=== PATIENT | female | born 1940 | race Caucasian/White ===

== ENCOUNTER 2018-07-27 08:54 | Day surgery (SDC) | payer MEDICARE, MEDICAID ==
[~2018-07-27] VITALS: Ht 154.9 cm; Wt 100.0 kg
[~2018-07-27 08:54] MED LIST: CILO100T PO; DICL100G15 TOP; DOCU-273 PO; FERR325T28 PO; HYDR-3972 PO; KETO15CR2 TP; LIDO700A5 TOP; LIOT5TAB7 PO; LISI10TA4 PO; LORA10TA7 PO; LOVA20TA2 PO; METF-950 PO; METO25TA6 PO; MOME17SP NS; MONT10TA24 PO; MULT-1085 PO; NYSPWD TP; OCUVITE PO; OMEP-50 PO; ONDA4TAB11 PO; SERT100T10 PO
[2018-07-27 09:11] VITALS: BP 127/79
[2018-07-27] MEDS ORDERED: fentaNYL/PF 50MCG/1 ML 2ML syringe ONE (09:21)
[2018-07-27] MEDS ORDERED: LIDOcaine Viscous 15ml cup ONE (09:21)
[2018-07-27] MEDS ORDERED: MIDAZolam 5mg/5ml vial ONE (09:21)
[2018-07-27] MEDS ORDERED: SENN-161 PO (09:24)
[2018-07-27] MEDS ORDERED: MONT10TA21 PO (09:43)
[2018-07-27] MEDS ORDERED: FAMO-128 PO (09:44)
[2018-07-27] MEDS ORDERED: LIOT5TAB7 PO (09:45)
[2018-07-27] MEDS ORDERED: FLUT16SP2 BOTHNARES (09:47)
[2018-07-27] MEDS ORDERED: CHOL10002 PO (09:50)
[2018-07-27] MEDS ORDERED: GABA300C PO (09:51)
[2018-07-27] MEDS ORDERED: POTA8TAB8 PO (09:52)
[2018-07-27] MEDS ORDERED: BACL20TA PO (09:53)
[2018-07-27] MEDS ORDERED: VIT1CAPS46 PO (09:54)
[2018-07-27] MEDS ORDERED: CYAN-19 PO (09:55)
[2018-07-27] MEDS ORDERED: FURO40TA4 PO (09:55)
[2018-07-27 10:50] VITALS: BP 127/74
[2018-07-27 11:00] VITALS: BP 106/75
[2018-07-27 11:10] VITALS: BP 122/84
[2018-07-27 11:20] VITALS: BP 108/70
== END 2018-07-27 11:44 | disposition home or self-care (01) ==
LOC: GI LAB 08:54
PROVIDERS: ATTEND Internal Medicine Gastroenterology
DX: K29.50 Unspecified chronic gastritis without bleeding (principal); K44.9 Diaphragmatic hernia without obstruction or gangrene; K22.2 Esophageal obstruction; I10 Essential (primary) hypertension; K21.9 Gastro-esophageal reflux disease without esophagitis; G80.8 Other cerebral palsy; E11.9 Type 2 diabetes mellitus without complications; Z79.82 Long term (current) use of aspirin; Z79.1 Long term (current) use of non-steroidal anti-inflammatories (NSAID); Z79.891 Long term (current) use of opiate analgesic; Z79.84 Long term (current) use of oral hypoglycemic drugs; Z86.69 Personal history of other diseases of the nervous system and sense organs; Z90.49 Acquired absence of other specified parts of digestive tract; Z98.890 Other specified postprocedural states; Z79.899 Other long term (current) drug therapy; Z82.49 Family history of ischemic heart disease and other diseases of the circulatory system; Z83.6 Family history of other diseases of the respiratory system
CPT/HCPCS: 43239; 43450; J2250; J3010; J7030; 99152; A4620

== ENCOUNTER 2019-01-19 13:02 | Emergency (ER) | payer MEDICARE, MEDICAID ==
[~2019-01-19] VITALS: Ht 152.4 cm; Wt 114.0 kg
[~2019-01-19 13:02] MED LIST changes: +ASPI-611 PO; +BACL20TA PO; +CHOL10002 PO; +CYAN-19 PO; -DOCU-273 PO; +DOCU-28 PO; +FAMO-128 PO; +FLUT16SP2 BOTHNARES; +FURO40TA4 PO; +GABA300C PO; -KETO15CR2 TP; -LIDO700A5 TOP; +LORA1TAB PO; +MONT10TA21 PO; -MONT10TA24 PO; -NYSPWD TP; -OMEP-50 PO; -ONDA4TAB11 PO; +POTA8TAB8 PO; +SENN-162 PO; +VIT1CAPS46 PO
[2019-01-19 14:33] LABS: BASOPHILS % (AUTO) 0.6 % (0-1); EOSINOPHILS # (AUTO) 0.5 X10'3 (0-0.9); EOSINOPHILS % (AUTO) 7.8 % (0-6); HEMATOCRIT 34.5 % (35.0-45.0); HEMOGLOBIN 11.2 g/dl (12.0-16.0); LYMPHOCYTES # (AUTO) 1.1 X10'3 (1.1-4.8); LYMPHOCYTES % (AUTO) 16.6 % (21-51); MEAN CORPUSCULAR HEMOGLOBIN 30.6 PG (27.0-31.0); MEAN CORPUSCULAR HGB CONC 32.4 g/dL (33.0-36.5); MEAN CORPUSCULAR VOLUME 94.4 FL (78-98); MEAN PLATELET VOLUME 7.9 FL (7.4-10.4); MONOCYTES # (AUTO) 0.5 X10'3 (0-0.9); MONOCYTES % (AUTO) 7.9 % (2-12); NEUTROPHILS # (AUTO) 4.6 X10'3 (1.8-7.7); NEUTROPHILS % (AUTO) 67.1 % (42-75); PLATELET COUNT 315 X10'3 (140-440); RED BLOOD COUNT 3.65 X10'6 (4.20-5.60); WHITE BLOOD COUNT 6.8 X10'3 (4.5-11.0)
[2019-01-19 14:49] LABS: INR 0.9 INR; PARTIAL THROMBOPLASTIN TIME 36 SECONDS (22-32)
[2019-01-19 14:50] LABS: ALANINE AMINOTRANSFERASE 16 U/L (12-78); ALBUMIN/GLOBULIN RATIO 0.8 (1.1-1.5); ALKALINE PHOSPHATASE 76 IU/L (46-116); ANION GAP 8 (8-16); ASPARTATE AMINO TRANSFERASE 16 U/L (10-37); BILIRUBIN,TOTAL 0.3 MG/DL (0.1-1.0); BLOOD UREA NITROGEN 27 MG/DL (7-18); BUN/CREATININE RATIO 17.5 (6.6-38.0); CALCIUM 9.2 MG/DL (8.5-10.1); CHLORIDE 100 MMOL/L (99-107); CREATININE 1.54 MG/DL (0.40-0.90); GLUCOSE 109 MG/DL (70-104); POTASSIUM 4.8 MMOL/L (3.5-5.1); SODIUM 135 MMOL/L (135-145); TOTAL CARBON DIOXIDE 27.5 MMOL/L (24-32); eGFR 33 ML/MIN
[2019-01-19 16:04] VITALS: BP 129/91
[2019-01-19] MEDS ORDERED: cephalexin 500mg capsule PO ONE (16:25)
[2019-01-19] MEDS ORDERED: clindamycin 150mg capsule PO ONE (16:25)
[2019-01-19] MEDS ORDERED: CEPH-572 PO (16:33)
== END 2019-01-19 17:28 | disposition home or self-care (01) ==
LOC: ER 13:03
DX: S80.12XA Contusion of left lower leg, initial encounter (principal); L03.116 Cellulitis of left lower limb; J44.9 Chronic obstructive pulmonary disease, unspecified; E11.9 Type 2 diabetes mellitus without complications; Z79.82 Long term (current) use of aspirin; Z79.84 Long term (current) use of oral hypoglycemic drugs; Z79.899 Other long term (current) drug therapy; Z56.0 Unemployment, unspecified; Z60.2 Problems related to living alone; W22.8XXA Striking against or struck by other objects, initial encounter; Y93.89 Activity, other specified; Y92.89 Other specified places as the place of occurrence of the external cause; Y99.8 Other external cause status
CPT/HCPCS: 10160; 36415; 71045; 73560; 80053; 85025; 85610; 85730; 99284

== ENCOUNTER 2019-04-04 05:11 | Inpatient (IN) | payer MEDICARE, MEDICAID ==
[2019-04-04] VITALS (14 sets, daily range): BP systolic 74–146; BP diastolic 35–88
[~2019-04-04] VITALS: Ht 154.9 cm; Wt 95.6 kg
[~2019-04-04 05:11] MED LIST changes: +ATR0.5NEB IH; -CYAN-19 PO; +CYAN100019 PO; -FERR325T28 PO; +GUAI-652 PO; +LIOT5TAB10 PO; -LIOT5TAB7 PO; -MOME17SP NS; -OCUVITE PO; +POTA10TA10 PO; -POTA8TAB8 PO; -SERT100T10 PO; +SERT25TA5 PO
[2019-04-04] MEDS ORDERED: pantoprazole IV 80 MG in normal saline 100ml IV soln 100 ML IV ONE ×4 (05:30)
[2019-04-04] MEDS ORDERED: normal saline 1000ML IV soln IV ONE (05:30)
[2019-04-04] MEDS ORDERED: ondansetron/PF 4mg/2ml inj IV ONE (05:30)
[2019-04-04] MEDS ORDERED: ESOMEPRAZOLE 40 MG VIAL IV ONE (05:33)
[2019-04-04 05:44] LABS: BASOPHILS # (AUTO) 0.1 X10'3 (0-0.2); BASOPHILS % (AUTO) 0.5 % (0-1); EOSINOPHILS # (AUTO) 0.3 X10'3 (0-0.9); EOSINOPHILS % (AUTO) 1.6 % (0-6); HEMATOCRIT 27.3 % (35.0-45.0); HEMOGLOBIN 8.9 g/dl (12.0-16.0); LYMPHOCYTES # (AUTO) 1.2 X10'3 (1.1-4.8); LYMPHOCYTES % (AUTO) 6.8 % (21-51); MEAN CORPUSCULAR HEMOGLOBIN 29.9 PG (27.0-31.0); MEAN CORPUSCULAR HGB CONC 32.7 g/dL (33.0-36.5); MEAN CORPUSCULAR VOLUME 91.4 FL (78-98); MEAN PLATELET VOLUME 8.1 FL (7.4-10.4); MONOCYTES # (AUTO) 0.5 X10'3 (0-0.9); MONOCYTES % (AUTO) 2.7 % (2-12); NEUTROPHILS # (AUTO) 15.9 X10'3 (1.8-7.7); NEUTROPHILS % (AUTO) 88.4 % (42-75); PLATELET COUNT 388 X10'3 (140-440); RED BLOOD COUNT 2.99 X10'6 (4.20-5.60); RED CELL DISTRIBUTION WIDTH 16.1 % (11.5-14.5)
[2019-04-04 06:00] LABS: ALANINE AMINOTRANSFERASE 17 U/L (12-78); ALBUMIN 2.4 G/DL (3.4-5.0); ALBUMIN/GLOBULIN RATIO 0.6 (1.1-1.5); ALKALINE PHOSPHATASE 60 IU/L (46-116); ANION GAP 11 (8-16); ASPARTATE AMINO TRANSFERASE 11 U/L (10-37); BILIRUBIN,TOTAL 0.2 MG/DL (0.1-1.0); BLOOD UREA NITROGEN 80 MG/DL (7-18); BUN/CREATININE RATIO 30.8 (6.6-38.0); CALCIUM 9.8 MG/DL (8.5-10.1); CHLORIDE 98 MMOL/L (99-107); GLUCOSE 205 MG/DL (70-104); LIPASE 347 U/L (73-393); POTASSIUM 5.9 MMOL/L (3.5-5.1); SODIUM 132 MMOL/L (135-145); TOTAL CARBON DIOXIDE 23.4 MMOL/L (24-32); TOTAL PROTEIN 6.3 G/DL (6.4-8.2); eGFR 18 ML/MIN
[2019-04-04] MEDS: pantoprazole 40MG/NS 100ML BAG 100 ML IV SCH ×5 (06:06→20:58)
[2019-04-04] MEDS ORDERED: morphine 4 MG/ML inj SYRINge IV ONE (06:25)
--- NOTE | 2019-04-04 06:29 | NUR ---
iv started in the left foot @0523 20 guage iv start in the right foot @530 labs @0530 ekg @ 0550 Ng in placce by rn donnie @0557 zofran given for nausea @ 06 2 liter up @0610
[2019-04-04] MEDS ORDERED: dextrose 50%-water 50ml dispensing syringe IV ONE (06:45)
[2019-04-04] MEDS ORDERED: insulin regular, human 10 units/0.1 ml syringe IV ONE (06:45)
[2019-04-04] MEDS ORDERED: normal saline 1000ML IV soln IVB ONE (06:45)
[2019-04-04] MEDS ORDERED: calcium chloride 100 MG/1 ML inj IV ONE (06:45)
[2019-04-04] MEDS ORDERED: calcium chloride inj. 1,000 MG in normal saline 100ml IV soln 90 ML IV ONE (06:55)
[2019-04-04] MEDS ORDERED: desmopressin inj. 20 MCG in normal saline 100ml IV soln 100 ML IV ONE (07:00)
--- NOTE | 2019-04-04 07:00 | NUR ---
PT CLEANED FROM A DARK BLACK STOOL. PT'S SKIN IN THE URETHRA AND LABIA AREA IS SOMEWHAT RAW WITH A LITTLE BIT OF SKIN BROKEN RED AND IRRITATED. PT HAS A WOUND TO HER COCCYX AND HAS BEEN PROPED ON HER RIGHT SIDE WITH A PILLOW.
[2019-04-04 08:01] LABS: CLARITY,URINE SLIGHTLY CLOUDY (Clear); COLOR,URINE STRAW (Yellow); GLUCOSE, URINE >=1000 mg/dl (Neg); KETONES,URINE NEGATIVE (Neg); LEUKOCYTE ESTERASE ,URINE NEGATIVE (Neg); NITRITES, URINE NEGATIVE (Neg); OCCULT BLOOD,URINE NEGATIVE (Neg); PH,URINE 5.5 (4.8-8.0); PROTEIN,URINE NEGATIVE (Neg); UROBILINOGEN,URINE 0.2 E.U/dL (0.2-1.0)
[2019-04-04 08:04] LABS: UA COLLECTION TYPE STRAIGHT CATH
[2019-04-04] MEDS ORDERED: morphine 2 MG/ML inj. syringe IV PRN (08:05)
[2019-04-04] MEDS ORDERED: sodium phosphate inj. 15 MMOL in dextrose 5%-water 150 ML IV PRN (08:05)
[2019-04-04] MEDS ORDERED: magnesium 2GM in 50ml NS 50 ML IV PRN (08:05)
[2019-04-04] MEDS ORDERED: morphine 4 MG/ML inj SYRINge IV PRN (08:05)
[2019-04-04] MEDS ORDERED: ondansetron/PF 4mg/2ml inj IV PRN (08:05)
[2019-04-04] MEDS ORDERED: magnesium Cl slow-release 64mg tablet PO PRN (08:05)
[2019-04-04] MEDS ORDERED: Neutra Phos packet PO PRN (08:05)
[2019-04-04] MEDS ORDERED: sodium phosphate inj. 30 MMOL in dextrose 5%-water 250 ML IV PRN (08:05)
[2019-04-04] MEDS ORDERED: magnesium 4gm in 100ml NS 100 ML IV PRN (08:05)
[2019-04-04] MEDS ORDERED: acetaminophen 325mg tablet PO PRN ×2 (08:05)
[2019-04-04 08:06] LABS: SQUAMOUS EPITHELIAL CELL,UR FEW /LPF (FEW)
[2019-04-04 08:07] LABS: BACTERIA,URINE FEW /HPF (Neg); HYALINE CASTS 0-3 /LPF (NEGATIVE); MUCUS STRANDS FEW /LPF (Neg); RBC,URINE 0-2 /HPF (0-2); WBC,URINE 0-4 /HPF (0-4)
[2019-04-04] MEDS ORDERED: albuterol 2.5 mg/0.5ml nebule NEB STA (08:09)
[2019-04-04] MEDS ORDERED: albuterol 2.5 MG/3 ML nebule NEB STA (08:23)
[2019-04-04 08:52] LABS: AMYLASE 61 U/L (25-115)
--- NOTE | 2019-04-04 09:10 | NUR ---
PT ROLLED TO HER LEFT SIDE AND PROPED WITH A PILLOW
[2019-04-04] MEDS: normal saline 1000ml 1,000 ML IV SCH ×2 (09:20→23:12)
[2019-04-04] MEDS ORDERED: BISA10SU60 RC (09:25)
[2019-04-04] MEDS ORDERED: KETO15CR2 TP (09:31)
[2019-04-04] MEDS ORDERED: MAGN400O6 PO (09:35)
--- NOTE | 2019-04-04 09:46 | NUR ---
I have received report from LAMBERT Sotomayor in ED and had the opportunity to ask questions and assume patient care. Pt due to arrive.
--- NOTE | 2019-04-04 10:15 | NUR ---
Pt arrived from ED on gurney. Placed on monitor & ICU bed. F/C to gravity. NG to LIS. NC to 2 L. Photos of coccyx wound taken.
[2019-04-04] MEDS ORDERED: normal saline 1000ml 1,000 ML IV ONE ×2 (11:25→16:30)
[2019-04-04 11:43] LABS: PARTIAL THROMBOPLASTIN TIME 28 SECONDS (22-32)
[2019-04-04] MEDS ORDERED: SODI15OR11 PO (11:48)
[2019-04-04] MEDS ORDERED: BACL10TA PO (11:53)
[2019-04-04] MEDS ORDERED: fentaNYL/PF 50MCG/1 ML 2ML syringe ONE (12:42)
[2019-04-04] MEDS ORDERED: MIDAZolam 5mg/5ml vial ONE (12:43)
[2019-04-04] MEDS ORDERED: LIDOcaine Viscous 15ml cup ONE (12:43)
[2019-04-04] MEDS: albumin (Human) 5% 250ml 250 ML IV SCH ×2 (15:32→15:52)
[2019-04-04] MEDS ORDERED: [UNRECOGNIZED DRUG - CODE] TP (16:33)
[2019-04-04 17:57] LABS: ALBUMIN 2.4 G/DL (3.4-5.0); ANION GAP 13 (8-16); BLOOD UREA NITROGEN 74 MG/DL (7-18); BUN/CREATININE RATIO 29.5 (6.6-38.0); CALCIUM 9.2 MG/DL (8.5-10.1); CHLORIDE 107 MMOL/L (99-107); CREATININE 2.51 MG/DL (0.40-0.90); GLUCOSE 194 MG/DL (70-104); PHOSPHORUS 2.5 MG/DL (2.3-4.5); POTASSIUM 4.5 MMOL/L (3.5-5.1); SODIUM 138 MMOL/L (135-145); TOTAL CARBON DIOXIDE 17.9 MMOL/L (24-32); eGFR 19 ML/MIN
[2019-04-04] MEDS ORDERED: bisacodyl 10mg suppository rectal RC PRN (18:05)
[2019-04-04] MEDS ORDERED: fluticasone nasal spray 16GM bottle NS PRN (18:05)
[2019-04-04] MEDS ORDERED: HYDROcodone/acetaminophen 10/325mg tab PO PRN (18:05)
--- NOTE | 2019-04-04 18:06 | NUR ---
Problems reprioritized. Patient report given, questions answered & plan of care reviewed with LAMBERT Pastor.
[2019-04-04 18:10] LABS: BASOPHILS # (AUTO) 0.1 X10'3 (0-0.2); BASOPHILS % (AUTO) 0.2 % (0-1); EOSINOPHILS % (AUTO) 0.2 % (0-6); HEMATOCRIT 24.5 % (35.0-45.0); HEMOGLOBIN 7.6 g/dl (12.0-16.0); LYMPHOCYTES # (AUTO) 0.9 X10'3 (1.1-4.8); LYMPHOCYTES % (AUTO) 3.6 % (21-51); MEAN CORPUSCULAR HEMOGLOBIN 29.8 PG (27.0-31.0); MEAN CORPUSCULAR HGB CONC 31.1 g/dL (33.0-36.5); MEAN CORPUSCULAR VOLUME 95.7 FL (78-98); MEAN PLATELET VOLUME 8.2 FL (7.4-10.4); MONOCYTES # (AUTO) 0.6 X10'3 (0-0.9); MONOCYTES % (AUTO) 2.7 % (2-12); NEUTROPHILS # (AUTO) 22.3 X10'3 (1.8-7.7); NEUTROPHILS % (AUTO) 93.3 % (42-75); PLATELET COUNT 310 X10'3 (140-440); RED BLOOD COUNT 2.56 X10'6 (4.20-5.60); RED CELL DISTRIBUTION WIDTH 16.8 % (11.5-14.5); WHITE BLOOD COUNT 23.9 X10'3 (4.5-11.0)
[2019-04-04] MEDS ORDERED: ipratropium 0.5 MG/2.5ML nebule IH PRN (18:10)
[2019-04-04] MEDS ORDERED: LORazepam 0.5 MG tablet PO PRN (18:10)
[2019-04-04] MEDS ORDERED: magnesium hydroxide 30ml (MOM) UD suspension PO PRN (18:15)
[2019-04-04 18:37] LABS: PLATELET ESTIMATE NORMAL; POLYCHROMASIA 2+; TOTAL CELLS COUNTED 100; TOXIC GRANULATION 1+
[2019-04-04 18:38] LABS: ANISOCYTOSIS 1+; ROULEAUX 1+
[2019-04-04] MEDS: loratadine 10mg tablet PO SCH ×2 (19:23→20:56)
--- NOTE | 2019-04-04 20:16 | NUR ---
Spoke with Faustina Ashby NP Re: H&H 7.6/24.5. Will order Hemogram at 2300. monitor H&H will transfuse if necessary. Informed September that per MD note patient had refused earlier transfusion. Also discussed patients lower BP, plan is to administer fluid first before giving pressors.
[2019-04-04] MEDS ORDERED: normal saline 500ml IV soln 500 ML IV ONE (20:30)
--- NOTE | 2019-04-04 20:30 | NUR ---
Spoke with Faustina Ashby NP re: BP 76/54. Orders to give 500 ml fluid bolus over 2 hours.
[2019-04-04] MEDS: sennosides 8.6mg tablet PO SCH (20:56)
[2019-04-04] MEDS ORDERED: NORepinephrine 8mg/ 250ml NS 250 ML IV SCH (21:20)
[2019-04-04 23:36] LABS: MEAN CORPUSCULAR HEMOGLOBIN 29.7 PG (27.0-31.0); MEAN CORPUSCULAR VOLUME 92.9 FL (78-98); MEAN PLATELET VOLUME 7.2 FL (7.4-10.4); PLATELET COUNT 265 X10'3 (140-440); RED BLOOD COUNT 1.95 X10'6 (4.20-5.60); RED CELL DISTRIBUTION WIDTH 16.6 % (11.5-14.5); WHITE BLOOD COUNT 19.4 X10'3 (4.5-11.0)
[2019-04-04 23:40] LABS: HEMATOCRIT 18.1 % (35.0-45.0); HEMOGLOBIN 5.8 g/dl (12.0-16.0)
[2019-04-05] VITALS (33 sets, daily range): BP systolic 81–153; BP diastolic 41–79
--- NOTE | 2019-04-05 00:15 | NUR ---
Critical H&H 5.818.1. Called to Faustina Asbhy NP. She will come to bedside for transfusion consent.
[2019-04-05] MEDS: pantoprazole 40MG/NS 100ML BAG 100 ML IV SCH ×5 (02:05→23:45)
[2019-04-05] MEDS: polyvinyl alcohol ophthalmic drops 15ml bottle EACHEYE PRN ×2 (03:29→10:19)
[2019-04-05 05:31] LABS: BASOPHILS % (AUTO) 0.2 % (0-1); EOSINOPHILS % (AUTO) 5.3 % (0-6); HEMATOCRIT 22.4 % (35.0-45.0); HEMOGLOBIN 7.2 g/dl (12.0-16.0); LYMPHOCYTES # (AUTO) 1.9 X10'3 (1.1-4.8); MEAN CORPUSCULAR VOLUME 93.8 FL (78-98); MEAN PLATELET VOLUME 7.8 FL (7.4-10.4); MONOCYTES # (AUTO) 0.9 X10'3 (0-0.9); MONOCYTES % (AUTO) 4.7 % (2-12); NEUTROPHILS % (AUTO) 79.8 % (42-75); PLATELET COUNT 248 X10'3 (140-440); RED BLOOD COUNT 2.39 X10'6 (4.20-5.60); RED CELL DISTRIBUTION WIDTH 15.9 % (11.5-14.5); WHITE BLOOD COUNT 18.8 X10'3 (4.5-11.0)
[2019-04-05 05:54] LABS: ALANINE AMINOTRANSFERASE 17 U/L (12-78); ALBUMIN 2.1 G/DL (3.4-5.0); ALBUMIN/GLOBULIN RATIO 0.7 (1.1-1.5); ALKALINE PHOSPHATASE 46 IU/L (46-116); ANION GAP 11 (8-16); ASPARTATE AMINO TRANSFERASE 14 U/L (10-37); BILIRUBIN,TOTAL 0.2 MG/DL (0.1-1.0); BLOOD UREA NITROGEN 63 MG/DL (7-18); BUN/CREATININE RATIO 31.3 (6.6-38.0); CALCIUM 7.4 MG/DL (8.5-10.1); CHLORIDE 106 MMOL/L (99-107); CREATININE 2.01 MG/DL (0.40-0.90); GLUCOSE 129 MG/DL (70-104); PHOSPHORUS 2.3 MG/DL (2.3-4.5); POTASSIUM 4.2 MMOL/L (3.5-5.1); SODIUM 135 MMOL/L (135-145); TOTAL PROTEIN 5.1 G/DL (6.4-8.2); eGFR 24 ML/MIN
--- NOTE | 2019-04-05 06:20 | NUR ---
Problems reprioritized. Patient report given, questions answered & plan of care reviewed with LAMBERT Ortiz.
--- NOTE | 2019-04-05 06:30 | NUR ---
Patient in room CICU 2011. I have received report from MAGDY VERDIN and had the opportunity to ask questions and assume patient care.
[2019-04-05 07:18] LABS: ANISOCYTOSIS 1+; PLATELET ESTIMATE NORMAL
[2019-04-05 07:19] LABS: POIKILOCYTOSIS FEW; POLYCHROMASIA 1+
[2019-04-05] MEDS: gabapentin 300mg capsule PO SCH (07:37)
[2019-04-05] MEDS: beta-carotene(A) w/C & E + minerals tab PO SCH (07:38)
[2019-04-05] MEDS: multivitamins, therapeutics tablet PO SCH (07:38)
[2019-04-05] MEDS: montelukast 10mg tablet PO SCH (07:38)
[2019-04-05] MEDS: cyanocobalamin 500mcg tablet PO SCH (07:39)
[2019-04-05] MEDS: sertraline 25mg tablet PO SCH (07:39)
[2019-04-05] MEDS: atorvastatin 10mg tablet PO SCH (07:39)
[2019-04-05] MEDS: vitamin D (cholecalciferol) 1,000 unit tablet PO SCH (07:39)
[2019-04-05] MEDS: ketoconazole 2% cream 15gm TP SCH (08:00)
[2019-04-05] MEDS: liothyronine sod 5mcg tablet PO SCH (08:00)
[2019-04-05 10:26] LABS: MEAN CORPUSCULAR HEMOGLOBIN 30.3 PG (27.0-31.0); MEAN CORPUSCULAR HGB CONC 32.6 g/dL (33.0-36.5); MEAN CORPUSCULAR VOLUME 93.1 FL (78-98); MEAN PLATELET VOLUME 7.3 FL (7.4-10.4); PLATELET COUNT 219 X10'3 (140-440); RED BLOOD COUNT 2.07 X10'6 (4.20-5.60); RED CELL DISTRIBUTION WIDTH 15.9 % (11.5-14.5); WHITE BLOOD COUNT 14.7 X10'3 (4.5-11.0)
[2019-04-05 10:29] LABS: HEMATOCRIT 19.2 % (35.0-45.0); HEMOGLOBIN 6.3 g/dl (12.0-16.0)
[2019-04-05] MEDS: normal saline 1000ml 1,000 ML IV SCH ×2 (10:41→22:00)
--- NOTE | 2019-04-05 11:57 | NUR ---
wound care team at the bedside
--- NOTE | 2019-04-05 12:30 | NUR ---
PRESSURE ULCER EDUCATION: DEFINITION: A pressure ulcer is an area of skin that breaks down when you stay in one position too long. The constant pressure against the skin reduces the blood flow to that area and the affected tissue dies. CAUSES: "Being bedridden or in a wheelchair "Fragile skin "Having a chronic condition, such as diabetes or vascular disease "Inability to move certain parts of your body without assistance "Older age "Incontinence of urine or stool SYMPTOMS: "A reddened area that DOES NOT turn white when pressed on - this can be the beginning of a pressure ulcer "A blister, deep sore or a crater - these can be advanced pressure ulcers FIRST AID: "Relieve the pressure on this area "Keep the area clean and dry "Call your primary doctor if you see any of the above symptoms "DO NOT massage the area "DO NOT use a donut shaped or ring shaped pillow- these actually interfere with the blood flow and cause complications PREVENTION: "Check for pressure ulcers everyday "Change position at least every two hours to relieve pressure "Use items that help relieve pressure- pillows, sheepskin, foam padding, and powders. "Keep skin clean and dry "Eat healthy well balanced meals "Exercise daily IF YOU SEE ANY OF THESE SYMPTOMS WHILE IN THE HOSPITAL - TELL YOUR NURSE IMMEDIATELY. IF YOU SEE ANY OF THESE SYMPTOMS WHILE AT HOME OR HAVE ANY QUESTIONS OR CONCERNS ABOUT PRESSURE ULCERS - CALL YOUR PRIMARY DOCTOR IMMEDIATELY. Addendum: 04/05/19 at 1230 by Kendell Mathews RN Amended: Links added.
[2019-04-05 19:08] LABS: BASOPHILS # (AUTO) 0.1 X10'3 (0-0.2); BASOPHILS % (AUTO) 0.8 % (0-1); EOSINOPHILS # (AUTO) 1.1 X10'3 (0-0.9); EOSINOPHILS % (AUTO) 9.7 % (0-6); HEMOGLOBIN 8.7 g/dl (12.0-16.0); LYMPHOCYTES # (AUTO) 1.6 X10'3 (1.1-4.8); LYMPHOCYTES % (AUTO) 13.8 % (21-51); MEAN CORPUSCULAR HEMOGLOBIN 30.3 PG (27.0-31.0); MEAN CORPUSCULAR HGB CONC 33.4 g/dL (33.0-36.5); MEAN CORPUSCULAR VOLUME 90.6 FL (78-98); MEAN PLATELET VOLUME 7.4 FL (7.4-10.4); MONOCYTES # (AUTO) 0.5 X10'3 (0-0.9); MONOCYTES % (AUTO) 4.4 % (2-12); NEUTROPHILS # (AUTO) 8.3 X10'3 (1.8-7.7); NEUTROPHILS % (AUTO) 71.3 % (42-75); PLATELET COUNT 194 X10'3 (140-440); RED BLOOD COUNT 2.87 X10'6 (4.20-5.60); RED CELL DISTRIBUTION WIDTH 16.2 % (11.5-14.5); WHITE BLOOD COUNT 11.6 X10'3 (4.5-11.0)
[2019-04-05] MEDS: sennosides 8.6mg tablet PO SCH (20:52)
[2019-04-05] MEDS: loratadine 10mg tablet PO SCH (20:52)
[2019-04-05] MEDS ORDERED: baclofen 10mg tablet PO ONE (22:00)
[2019-04-06] VITALS (20 sets, daily range): BP systolic 93–136; BP diastolic 45–79
[2019-04-06 02:18] LABS: BASOPHILS % (AUTO) 0.4 % (0-1); EOSINOPHILS # (AUTO) 1.1 X10'3 (0-0.9); EOSINOPHILS % (AUTO) 11.8 % (0-6); HEMATOCRIT 25.4 % (35.0-45.0); HEMOGLOBIN 8.4 g/dl (12.0-16.0); LYMPHOCYTES % (AUTO) 20.8 % (21-51); MEAN CORPUSCULAR HEMOGLOBIN 30.2 PG (27.0-31.0); MEAN CORPUSCULAR HGB CONC 33.2 g/dL (33.0-36.5); MEAN CORPUSCULAR VOLUME 90.8 FL (78-98); MEAN PLATELET VOLUME 7.5 FL (7.4-10.4); MONOCYTES # (AUTO) 0.4 X10'3 (0-0.9); MONOCYTES % (AUTO) 4.2 % (2-12); NEUTROPHILS # (AUTO) 6.1 X10'3 (1.8-7.7); NEUTROPHILS % (AUTO) 62.8 % (42-75); PLATELET COUNT 194 X10'3 (140-440); RED BLOOD COUNT 2.79 X10'6 (4.20-5.60); RED CELL DISTRIBUTION WIDTH 16.3 % (11.5-14.5); WHITE BLOOD COUNT 9.7 X10'3 (4.5-11.0)
[2019-04-06 02:32] LABS: ALANINE AMINOTRANSFERASE 18 U/L (12-78); ALBUMIN 2.1 G/DL (3.4-5.0); ALBUMIN/GLOBULIN RATIO 0.8 (1.1-1.5); ALKALINE PHOSPHATASE 51 IU/L (46-116); ANION GAP 9 (8-16); ASPARTATE AMINO TRANSFERASE 16 U/L (10-37); BILIRUBIN,TOTAL 0.2 MG/DL (0.1-1.0); BLOOD UREA NITROGEN 46 MG/DL (7-18); CALCIUM 7.5 MG/DL (8.5-10.1); CHLORIDE 109 MMOL/L (99-107); CREATININE 1.64 MG/DL (0.40-0.90); GLUCOSE 86 MG/DL (70-104); MAGNESIUM 1.1 MG/DL (1.5-2.4); PHOSPHORUS 1.8 MG/DL (2.3-4.5); POTASSIUM 3.6 MMOL/L (3.5-5.1); SODIUM 137 MMOL/L (135-145); TOTAL CARBON DIOXIDE 18.8 MMOL/L (24-32); TOTAL PROTEIN 4.9 G/DL (6.4-8.2); eGFR 30 ML/MIN
[2019-04-06] MEDS: pantoprazole 40MG/NS 100ML BAG 100 ML IV SCH (05:00)
[2019-04-06] MEDS ORDERED: LORazepam 0.5 MG tablet PO PRN (07:55)
[2019-04-06] MEDS ORDERED: bisacodyl 10mg suppository rectal RC PRN (07:55)
[2019-04-06] MEDS ORDERED: magnesium hydroxide 30ml (MOM) UD suspension PO PRN (07:55)
[2019-04-06] MEDS ORDERED: HYDROcodone/acetaminophen 10/325mg tab PO PRN (07:55)
[2019-04-06] MEDS: ketoconazole 2% cream 15gm TP SCH ×2 (08:00)
[2019-04-06] MEDS: sertraline 25mg tablet PO SCH ×2 (08:00→08:25)
[2019-04-06] MEDS ORDERED: gabapentin 300mg capsule PO SCH (08:00)
[2019-04-06] MEDS: montelukast 10mg tablet PO SCH ×2 (08:00→08:24)
[2019-04-06] MEDS: liothyronine sod 5mcg tablet PO SCH ×2 (08:00→08:24)
[2019-04-06] MEDS: multivitamins, therapeutics tablet PO SCH (08:24)
[2019-04-06] MEDS: famotidine 20mg tablet PO SCH ×2 (08:24→21:12)
[2019-04-06] MEDS: atorvastatin 10mg tablet PO SCH (08:24)
[2019-04-06] MEDS: cyanocobalamin 500mcg tablet PO SCH (08:25)
[2019-04-06] MEDS: vitamin D (cholecalciferol) 1,000 unit tablet PO SCH (08:25)
[2019-04-06] MEDS: beta-carotene(A) w/C & E + minerals tab PO SCH (08:25)
[2019-04-06] MEDS: lisinopril 10 MG tablet PO SCH (08:25)
[2019-04-06] MEDS: gabapentin 300mg capsule PO SCH (08:26)
[2019-04-06] MEDS: metoprolol tartrate 25mg tablet PO SCH ×2 (08:26→20:00)
--- NOTE | 2019-04-06 16:43 | NUR ---
Ken and central line removed following policy and procedures. Patient tolerated well
--- NOTE | 2019-04-06 17:00 | NUR ---
Patient transferred to [facility] with all belongings
--- NOTE | 2019-04-06 17:10 | NUR ---
ASSUMED CARE, RECEIVED REPORT FROM MATTHEW VERDIN. PATIENT TRANSFERRED TO OUR BED, RESTING COMFORTABLY. WILL CONTINUE TO MONITOR.
--- NOTE | 2019-04-06 18:25 | NUR ---
Problems reprioritized. Patient report given, questions answered & plan of care reviewed with NETTIE VERDIN.
[2019-04-06] MEDS ORDERED: baclofen 10mg tablet PO SCH (21:00)
[2019-04-06] MEDS: baclofen 10mg tablet PO SCH (21:11)
[2019-04-06] MEDS: loratadine 10mg tablet PO SCH (21:12)
[2019-04-06] MEDS: sennosides 8.6mg tablet PO SCH (21:12)
[2019-04-06] MEDS: ESOMEPRAZOLE 40 MG VIAL IV SCH (21:13)
[2019-04-07 02:00] VITALS: BP 111/59
[2019-04-07 06:10] VITALS: BP 115/73
--- NOTE | 2019-04-07 06:33 | NUR ---
Patient in room ORTHO 4017. I have received report from Horacio VERDIN and had the opportunity to ask questions and assume patient care.
[2019-04-07] MEDS: ESOMEPRAZOLE 40 MG VIAL IV SCH ×3 (07:31→20:47)
[2019-04-07] MEDS: sertraline 25mg tablet PO SCH (07:32)
[2019-04-07] MEDS: metoprolol tartrate 25mg tablet PO SCH ×2 (07:32→20:42)
[2019-04-07] MEDS: lisinopril 10 MG tablet PO SCH (07:32)
[2019-04-07] MEDS: loratadine 10mg tablet PO SCH (07:34)
[2019-04-07] MEDS: cyanocobalamin 500mcg tablet PO SCH (07:34)
[2019-04-07] MEDS: atorvastatin 10mg tablet PO SCH (07:34)
[2019-04-07] MEDS: vitamin D (cholecalciferol) 1,000 unit tablet PO SCH (07:34)
[2019-04-07] MEDS: liothyronine sod 5mcg tablet PO SCH (07:35)
[2019-04-07] MEDS: beta-carotene(A) w/C & E + minerals tab PO SCH (07:35)
[2019-04-07] MEDS: montelukast 10mg tablet PO SCH (07:35)
[2019-04-07] MEDS: multivitamins, therapeutics tablet PO SCH (07:35)
[2019-04-07] MEDS: famotidine 20mg tablet PO SCH ×2 (07:35→20:42)
[2019-04-07] MEDS: gabapentin 300mg capsule PO SCH (07:35)
[2019-04-07] MEDS: ketoconazole 2% cream 15gm TP SCH (08:00)
[2019-04-07 10:00] VITALS: BP 138/61
[2019-04-07 11:43] LABS: BASOPHILS # (AUTO) 0.1 X10'3 (0-0.2); BASOPHILS % (AUTO) 1.2 % (0-1); EOSINOPHILS % (AUTO) 11.6 % (0-6); HEMATOCRIT 26.1 % (35.0-45.0); HEMOGLOBIN 8.8 g/dl (12.0-16.0); LYMPHOCYTES # (AUTO) 1.3 X10'3 (1.1-4.8); LYMPHOCYTES % (AUTO) 14.9 % (21-51); MEAN CORPUSCULAR HEMOGLOBIN 30.5 PG (27.0-31.0); MEAN CORPUSCULAR HGB CONC 33.8 g/dL (33.0-36.5); MEAN CORPUSCULAR VOLUME 90.3 FL (78-98); MEAN PLATELET VOLUME 7.8 FL (7.4-10.4); MONOCYTES # (AUTO) 0.7 X10'3 (0-0.9); MONOCYTES % (AUTO) 7.3 % (2-12); NEUTROPHILS # (AUTO) 5.9 X10'3 (1.8-7.7); PLATELET COUNT 182 X10'3 (140-440); RED BLOOD COUNT 2.89 X10'6 (4.20-5.60); RED CELL DISTRIBUTION WIDTH 16.4 % (11.5-14.5)
[2019-04-07 11:56] LABS: ALANINE AMINOTRANSFERASE 18 U/L (12-78); ALBUMIN 2.2 G/DL (3.4-5.0); ALBUMIN/GLOBULIN RATIO 0.7 (1.1-1.5); ALKALINE PHOSPHATASE 50 IU/L (46-116); ANION GAP 9 (8-16); ASPARTATE AMINO TRANSFERASE 9 U/L (10-37); BILIRUBIN,TOTAL 0.2 MG/DL (0.1-1.0); BLOOD UREA NITROGEN 42 MG/DL (7-18); BUN/CREATININE RATIO 29.8 (6.6-38.0); CALCIUM 7.5 MG/DL (8.5-10.1); CHLORIDE 109 MMOL/L (99-107); CREATININE 1.41 MG/DL (0.40-0.90); GLUCOSE 109 MG/DL (70-104); MAGNESIUM 2.2 MG/DL (1.5-2.4); PHOSPHORUS 1.5 MG/DL (2.3-4.5); POTASSIUM 3.6 MMOL/L (3.5-5.1); SODIUM 137 MMOL/L (135-145); TOTAL CARBON DIOXIDE 19.2 MMOL/L (24-32); TOTAL PROTEIN 5.3 G/DL (6.4-8.2); eGFR 36 ML/MIN
[2019-04-07 18:00] VITALS: BP 117/74
--- NOTE | 2019-04-07 18:30 | NUR ---
Patient report given to Elsa LINDER
--- NOTE | 2019-04-07 19:00 | NUR ---
Patient in room ORTHO 4017. I have received report from Lisbeth Bedolla RN and had the opportunity to ask questions and assume patient care.
[2019-04-07] MEDS: baclofen 10mg tablet PO SCH (20:41)
[2019-04-07] MEDS: sennosides 8.6mg tablet PO SCH (20:41)
[2019-04-07 22:00] VITALS: BP 86/50
--- NOTE | 2019-04-08 06:50 | NUR ---
Received report from Horacio VERDIN
[2019-04-08 06:51] LABS: BASOPHILS % (AUTO) 0.6 % (0-1); EOSINOPHILS % (AUTO) 13.7 % (0-6); HEMATOCRIT 24.9 % (35.0-45.0); HEMOGLOBIN 8.2 g/dl (12.0-16.0); LYMPHOCYTES # (AUTO) 1.7 X10'3 (1.1-4.8); LYMPHOCYTES % (AUTO) 21.9 % (21-51); MEAN CORPUSCULAR HEMOGLOBIN 30.7 PG (27.0-31.0); MEAN PLATELET VOLUME 7.7 FL (7.4-10.4); MONOCYTES # (AUTO) 0.4 X10'3 (0-0.9); MONOCYTES % (AUTO) 5.3 % (2-12); NEUTROPHILS # (AUTO) 4.5 X10'3 (1.8-7.7); NEUTROPHILS % (AUTO) 58.5 % (42-75); PLATELET COUNT 192 X10'3 (140-440); RED BLOOD COUNT 2.68 X10'6 (4.20-5.60); RED CELL DISTRIBUTION WIDTH 16.5 % (11.5-14.5); WHITE BLOOD COUNT 7.7 X10'3 (4.5-11.0)
[2019-04-08 07:12] LABS: ALANINE AMINOTRANSFERASE 17 U/L (12-78); ALBUMIN 2.2 G/DL (3.4-5.0); ALBUMIN/GLOBULIN RATIO 0.7 (1.1-1.5); ALKALINE PHOSPHATASE 51 IU/L (46-116); ANION GAP 11 (8-16); ASPARTATE AMINO TRANSFERASE 18 U/L (10-37); BILIRUBIN,TOTAL 0.2 MG/DL (0.1-1.0); BLOOD UREA NITROGEN 32 MG/DL (7-18); BUN/CREATININE RATIO 25.6 (6.6-38.0); CALCIUM 8.1 MG/DL (8.5-10.1); CHLORIDE 109 MMOL/L (99-107); CREATININE 1.25 MG/DL (0.40-0.90); GLUCOSE 88 MG/DL (70-104); MAGNESIUM 1.9 MG/DL (1.5-2.4); PHOSPHORUS 1.8 MG/DL (2.3-4.5); POTASSIUM 3.5 MMOL/L (3.5-5.1); SODIUM 138 MMOL/L (135-145); TOTAL CARBON DIOXIDE 17.7 MMOL/L (24-32); TOTAL PROTEIN 5.2 G/DL (6.4-8.2); eGFR 42 ML/MIN
[2019-04-08 07:26] VITALS: BP 119/65
[2019-04-08] MEDS: liothyronine sod 5mcg tablet PO SCH (08:11)
[2019-04-08] MEDS: metoprolol tartrate 25mg tablet PO SCH ×2 (08:12→20:29)
[2019-04-08] MEDS: montelukast 10mg tablet PO SCH (08:12)
[2019-04-08] MEDS: gabapentin 300mg capsule PO SCH (08:12)
[2019-04-08] MEDS: cyanocobalamin 500mcg tablet PO SCH (08:12)
[2019-04-08] MEDS: vitamin D (cholecalciferol) 1,000 unit tablet PO SCH (08:12)
[2019-04-08] MEDS: famotidine 20mg tablet PO SCH ×2 (08:12→20:30)
[2019-04-08] MEDS: sertraline 25mg tablet PO SCH (08:12)
[2019-04-08] MEDS: lisinopril 10 MG tablet PO SCH (08:13)
[2019-04-08] MEDS: atorvastatin 10mg tablet PO SCH (08:13)
[2019-04-08] MEDS: multivitamins, therapeutics tablet PO SCH (08:13)
[2019-04-08] MEDS: beta-carotene(A) w/C & E + minerals tab PO SCH (08:13)
[2019-04-08] MEDS: ketoconazole 2% cream 15gm TP SCH (08:14)
[2019-04-08] MEDS: ESOMEPRAZOLE 40 MG VIAL IV SCH (08:20)
[2019-04-08 10:00] VITALS: BP 116/69
[2019-04-08 18:00] VITALS: BP 127/71
[2019-04-08] MEDS: baclofen 10mg tablet PO SCH (20:30)
[2019-04-08] MEDS: sennosides 8.6mg tablet PO SCH (20:30)
[2019-04-08] MEDS: loratadine 10mg tablet PO SCH (20:30)
[2019-04-08 22:00] VITALS: BP 162/77
[2019-04-09 06:00] VITALS: BP 122/71
[2019-04-09 06:53] LABS: BASOPHILS % (AUTO) 0.7 % (0-1); EOSINOPHILS # (AUTO) 0.9 X10'3 (0-0.9); EOSINOPHILS % (AUTO) 15.8 % (0-6); HEMATOCRIT 23.9 % (35.0-45.0); HEMOGLOBIN 7.9 g/dl (12.0-16.0); LYMPHOCYTES # (AUTO) 1.4 X10'3 (1.1-4.8); LYMPHOCYTES % (AUTO) 24.7 % (21-51); MEAN CORPUSCULAR HEMOGLOBIN 30.8 PG (27.0-31.0); MEAN CORPUSCULAR HGB CONC 33.1 g/dL (33.0-36.5); MEAN CORPUSCULAR VOLUME 93.1 FL (78-98); MEAN PLATELET VOLUME 7.4 FL (7.4-10.4); MONOCYTES # (AUTO) 0.3 X10'3 (0-0.9); MONOCYTES % (AUTO) 5.9 % (2-12); NEUTROPHILS # (AUTO) 3.1 X10'3 (1.8-7.7); NEUTROPHILS % (AUTO) 52.9 % (42-75); PLATELET COUNT 199 X10'3 (140-440); RED BLOOD COUNT 2.57 X10'6 (4.20-5.60); RED CELL DISTRIBUTION WIDTH 16.7 % (11.5-14.5); WHITE BLOOD COUNT 5.8 X10'3 (4.5-11.0)
[2019-04-09 07:28] LABS: ALANINE AMINOTRANSFERASE 18 U/L (12-78); ALBUMIN 2.4 G/DL (3.4-5.0); ALBUMIN/GLOBULIN RATIO 0.8 (1.1-1.5); ALKALINE PHOSPHATASE 52 IU/L (46-116); ANION GAP 11 (8-16); ASPARTATE AMINO TRANSFERASE 14 U/L (10-37); BILIRUBIN,TOTAL 0.2 MG/DL (0.1-1.0); BLOOD UREA NITROGEN 21 MG/DL (7-18); BUN/CREATININE RATIO 17.1 (6.6-38.0); CALCIUM 8.1 MG/DL (8.5-10.1); CHLORIDE 111 MMOL/L (99-107); CREATININE 1.23 MG/DL (0.40-0.90); GLUCOSE 87 MG/DL (70-104); MAGNESIUM 1.7 MG/DL (1.5-2.4); PHOSPHORUS 1.8 MG/DL (2.3-4.5); POTASSIUM 3.3 MMOL/L (3.5-5.1); SODIUM 142 MMOL/L (135-145); TOTAL CARBON DIOXIDE 19.6 MMOL/L (24-32); TOTAL PROTEIN 5.3 G/DL (6.4-8.2); eGFR 42 ML/MIN
[2019-04-09] MEDS: ketoconazole 2% cream 15gm TP SCH (08:00)
[2019-04-09] MEDS: lisinopril 10 MG tablet PO SCH ×2 (08:00→09:38)
[2019-04-09] MEDS: atorvastatin 10mg tablet PO SCH (09:33)
[2019-04-09] MEDS: liothyronine sod 5mcg tablet PO SCH (09:33)
[2019-04-09] MEDS: beta-carotene(A) w/C & E + minerals tab PO SCH (09:38)
[2019-04-09] MEDS: multivitamins, therapeutics tablet PO SCH (09:38)
[2019-04-09] MEDS: cyanocobalamin 500mcg tablet PO SCH (09:38)
[2019-04-09] MEDS: gabapentin 300mg capsule PO SCH (09:38)
[2019-04-09] MEDS: famotidine 20mg tablet PO SCH (09:38)
[2019-04-09] MEDS: vitamin D (cholecalciferol) 1,000 unit tablet PO SCH (09:38)
[2019-04-09] MEDS: montelukast 10mg tablet PO SCH (09:38)
[2019-04-09] MEDS: sertraline 25mg tablet PO SCH (09:39)
[2019-04-09] MEDS: metoprolol tartrate 25mg tablet PO SCH (09:47)
[2019-04-09 10:00] VITALS: BP 115/65
[2019-04-09 12:47] LABS: BASOPHILS % (AUTO) 0.6 % (0-1); EOSINOPHILS # (AUTO) 1.1 X10'3 (0-0.9); EOSINOPHILS % (AUTO) 14.7 % (0-6); HEMATOCRIT 25.8 % (35.0-45.0); HEMOGLOBIN 8.6 g/dl (12.0-16.0); LYMPHOCYTES # (AUTO) 1.6 X10'3 (1.1-4.8); LYMPHOCYTES % (AUTO) 22.2 % (21-51); MEAN CORPUSCULAR HEMOGLOBIN 30.8 PG (27.0-31.0); MEAN CORPUSCULAR HGB CONC 33.3 g/dL (33.0-36.5); MEAN CORPUSCULAR VOLUME 92.5 FL (78-98); MEAN PLATELET VOLUME 7.4 FL (7.4-10.4); MONOCYTES # (AUTO) 0.4 X10'3 (0-0.9); MONOCYTES % (AUTO) 5.9 % (2-12); NEUTROPHILS # (AUTO) 4.2 X10'3 (1.8-7.7); NEUTROPHILS % (AUTO) 56.6 % (42-75); PLATELET COUNT 216 X10'3 (140-440); RED BLOOD COUNT 2.79 X10'6 (4.20-5.60); RED CELL DISTRIBUTION WIDTH 16.5 % (11.5-14.5); WHITE BLOOD COUNT 7.4 X10'3 (4.5-11.0)
[2019-04-09 14:09] VITALS: BP 111/75
[2019-04-09 14:28] VITALS: BP 114/71
[2019-04-09 15:28] VITALS: BP 102/71
[2019-04-09 16:28] VITALS: BP 114/73
--- NOTE | 2019-04-09 16:55 | NUR ---
Initial: Pt admit w/ GIB w/ EDUARDO. EDUARDO now resolved per MD note. 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 RD provided pt w/ written/verbal high protein ed and RD contact information. PO 50% carb controlled/heart healthy meals. Pt declines additional proteins but would like alternative seasonings w/ meals: extra pepper, seasoning packet, and gravy on side TIDWM. Receiving MVI, vitamin D. Will continue to monitor for additional protein needs. Rec: 1. continue carb controlled/heart healthy diet 2. honor pt food preferences; see above 3. MVI for wound 4. wt per rx Addendum: 04/09/19 at [address] Amended: Links added.
== END 2019-04-09 17:45 | DRG 377 ==
LOC: ER 05:12 → CICU 2S 09:05 → CMPBEDREQ 18:31 → ORTHO 4S 04-06 17:12
PROVIDERS: ADMIT Internal Medicine Critical Care Medicine; ATTEND Internal Medicine Critical Care Medicine
PROC: 06HY33Z Insertion of Infusion Device into Lower Vein, Percutaneous Approach (ICD-10-PCS; 2019-04-04)
PROC: 0DB68ZX Excision of Stomach, Via Natural or Artificial Opening Endoscopic, Diagnostic (ICD-10-PCS; 2019-04-04)
PROC: 30233N1 Transfusion of Nonautologous Red Blood Cells into Peripheral Vein, Percutaneous Approach (ICD-10-PCS; 2019-04-05)
PROC: 30233N1 Transfusion of Nonautologous Red Blood Cells into Peripheral Vein, Percutaneous Approach (ICD-10-PCS; principal; 2019-04-09)
DX: K26.0 Acute duodenal ulcer with hemorrhage (principal); R57.8 Other shock; N17.9 Acute kidney failure, unspecified; D62 Acute posthemorrhagic anemia; E87.2 Acidosis; E87.5 Hyperkalemia; E66.01 Morbid (severe) obesity due to excess calories; G80.9 Cerebral palsy, unspecified; G89.29 Other chronic pain; N18.9 Chronic kidney disease, unspecified; E11.22 Type 2 diabetes mellitus with diabetic chronic kidney disease; J44.9 Chronic obstructive pulmonary disease, unspecified; K29.70 Gastritis, unspecified, without bleeding; K20.9 Esophagitis, unspecified; K44.9 Diaphragmatic hernia without obstruction or gangrene; Z60.2 Problems related to living alone; I95.9 Hypotension, unspecified; Z79.82 Long term (current) use of aspirin; Z79.84 Long term (current) use of oral hypoglycemic drugs; Z79.899 Other long term (current) drug therapy; Z79.890 Hormone replacement therapy; Z68.39 Body mass index [BMI] 39.0-39.9, adult; Z82.49 Family history of ischemic heart disease and other diseases of the circulatory system; Z82.5 Family history of asthma and other chronic lower respiratory diseases; Z56.0 Unemployment, unspecified
CPT/HCPCS: 36415; 43239; 71045; 74176; 80053; 80069; 81001; 82150; 82948; 83036; 83605; 83690; 83735; 84100; 84145; 84443; 85025; 85027; 85610; 85730; 86885; 86900; 86901; 86920; 87081; 88305; 88342; 93005; 93971; 94640; 94760; 96361; 96365; 96375; 97110; 97162; 97530; 99152; 99291; C9113; G0378; J1815; J2250; J2270; J2405; J2597; J3010; J3475; J7040; J7060; J7611; P9016; P9045

== ENCOUNTER 2020-07-06 12:43 | Emergency (ER) | payer MEDICARE, MEDICAID ==
[~2020-07-06] VITALS: Ht 154.9 cm; Wt 121.8 kg
[~2020-07-06 12:43] MED LIST changes: -ASPI-611 PO; +BACL10TA PO; -BACL20TA PO; +BISA10SU60 RC; -DICL100G15 TOP; -DOCU-28 PO; -GUAI-652 PO; +KETO15CR2 TP; +MAGN400O6 PO; -METF-950 PO; -SENN-162 PO; +SENN-263 PO; +SODI15OR11 PO; +[UNRECOGNIZED DRUG - CODE] TP
--- NOTE | 2020-07-06 13:05 | NUR ---
Spoke to Genet Fuller about patient and condition. She agrees that the patient should have labwork but would rather have the patient examined for the need for CT by a provider.
[2020-07-06 13:56] LABS: BASOPHILS % (AUTO) 0.2 % (0-1); EOSINOPHILS % (AUTO) 0.1 % (0-6); HEMATOCRIT 35.9 % (35.0-45.0); HEMOGLOBIN 11.8 g/dl (12.0-16.0); LYMPHOCYTES # (AUTO) 0.9 X10'3 (1.1-4.8); MEAN CORPUSCULAR HEMOGLOBIN 29.2 PG (27.0-31.0); MEAN CORPUSCULAR VOLUME 88.4 FL (78-98); MEAN PLATELET VOLUME 7.8 FL (7.4-10.4); MONOCYTES # (AUTO) 0.8 X10'3 (0-0.9); NEUTROPHILS # (AUTO) 8.4 X10'3 (1.8-7.7); NEUTROPHILS % (AUTO) 82.7 % (42-75); PLATELET COUNT 246 X10'3 (140-440); RED BLOOD COUNT 4.06 X10'6 (4.20-5.60); WHITE BLOOD COUNT 10.1 X10'3 (4.5-11.0)
[2020-07-06 14:20] VITALS: BP 102/87
[2020-07-06 14:20] LABS: ALANINE AMINOTRANSFERASE 13 U/L (12-78); ALBUMIN 2.6 G/DL (3.4-5.0); ALBUMIN/GLOBULIN RATIO 0.6 (1.1-1.5); ALKALINE PHOSPHATASE 68 IU/L (46-116); ANION GAP 8 (8-16); ASPARTATE AMINO TRANSFERASE 9 U/L (10-37); BILIRUBIN,TOTAL 0.4 MG/DL (0.1-1.0); BLOOD UREA NITROGEN 21 MG/DL (7-18); BUN/CREATININE RATIO 16.9 (6.6-38.0); CALCIUM 8.9 MG/DL (8.5-10.1); CHLORIDE 99 MMOL/L (99-107); CREATININE 1.24 MG/DL (0.40-0.90); GLUCOSE 145 MG/DL (70-104); POTASSIUM 4.1 MMOL/L (3.5-5.1); SODIUM 133 MMOL/L (135-145); TOTAL CARBON DIOXIDE 26.2 MMOL/L (24-32); TOTAL PROTEIN 7.1 G/DL (6.4-8.2); eGFR 42 ML/MIN
[2020-07-06] MEDS ORDERED: acetaminophen 325mg tablet PO ONE (15:35)
[2020-07-06] MEDS ORDERED: diazepam 5mg tablet PO ONE (15:35)
--- NOTE | 2020-07-06 15:57 | NUR ---
Gave report to Fátima at [facility] and Bindu is to set up transportation with [facility] for pt discharge
== END 2020-07-06 16:57 | disposition home or self-care (01) ==
LOC: ER 12:44
DX: R51.9 Headache, unspecified (principal); J44.9 Chronic obstructive pulmonary disease, unspecified; E11.9 Type 2 diabetes mellitus without complications; Z56.0 Unemployment, unspecified; Z60.2 Problems related to living alone; Z79.899 Other long term (current) drug therapy
CPT/HCPCS: 36415; 70450; 72125; 80053; 85025; 99285

== ENCOUNTER 2023-05-24 01:07 | Inpatient (IN) | payer MEDICARE, MEDICAID ==
[2023-05-24] VITALS (16 sets, daily range): BP systolic 73–108; BP diastolic 43–76; PULSE 101–191; RESP 14–21; O2SAT 90–99
[~2023-05-24] VITALS: Ht 154.9 cm; Wt 105.0 kg
[~2023-05-24 01:07] MED LIST changes: -CILO100T PO; +CILO100T27 PO; +LISI10TA27 PO; -LISI10TA4 PO; +LOP25T PO; -METO25TA6 PO; +MONT-48 PO; -MONT10TA21 PO; +POTA-188 PO; -POTA10TA10 PO; +SERT-432 PO; -SERT25TA5 PO
[2023-05-24] MEDS ORDERED: piperacillin/tazo 4.5gm/100ml 100 ML IV ONE (01:35)
[2023-05-24] MEDS ORDERED: vancomycin/NS 1 GM ADD-VANTAGE 250 ML IV ONE (01:35)
[2023-05-24] MEDS ORDERED: normal saline 500ml IV soln 500 ML IV ONE (01:40)
[2023-05-24 01:54] LABS: BASOPHILS % (AUTO) 0.1 % (0-1); EOSINOPHILS % (AUTO) 0 % (0-6); LYMPHOCYTES # (AUTO) 0.5 X10'3 (1.1-4.8); LYMPHOCYTES % (AUTO) 2.5 % (21-51); MEAN CORPUSCULAR HEMOGLOBIN 28.3 PG (27.0-31.0); MEAN CORPUSCULAR HGB CONC 32.6 g/dL (33.0-36.5); MEAN CORPUSCULAR VOLUME 86.9 FL (78-98); MONOCYTES # (AUTO) 0.7 X10'3 (0-0.9); MONOCYTES % (AUTO) 3.9 % (2-12); NEUTROPHILS # (AUTO) 16.7 X10'3 (1.8-7.7); NEUTROPHILS % (AUTO) 93.5 % (42-75); PLATELET COUNT 192 X10'3 (140-440); RED CELL DISTRIBUTION WIDTH 19.3 % (11.5-14.5); WHITE BLOOD COUNT 17.9 X10'3 (4.5-11.0)
[2023-05-24 01:58] LABS: ALANINE AMINOTRANSFERASE 14 U/L (12-78); ALBUMIN 2.2 G/DL (3.4-5.0); ALBUMIN/GLOBULIN RATIO 0.5 (1.1-1.5); ALKALINE PHOSPHATASE 109 IU/L (46-116); ANION GAP 9 (8-16); ASPARTATE AMINO TRANSFERASE 22 U/L (10-37); BILIRUBIN,TOTAL 0.7 MG/DL (0.1-1.0); BLOOD UREA NITROGEN 119 MG/DL (7-18); CALCIUM 9.1 MG/DL (8.5-10.1); CHLORIDE 84 MMOL/L (99-107); CREATININE 3.31 MG/DL (0.40-0.90); GLUCOSE 168 MG/DL (70-104); TOTAL CARBON DIOXIDE 22.6 MMOL/L (24-32); TOTAL PROTEIN 6.8 G/DL (6.4-8.2); eCRCL 10 ML/MIN; eGFR 13 ML/MIN
[2023-05-24 02:05] LABS: ABG BASE EXCESS -6.6 mmol/L (-2.0-2.0); ABG HCO3 16.1 mmol/L (22.0-26.0); ABG PCO2 (T) 25.1 mmHg (32.0-45.0); ABG PH (T) 7.425 (7.350-7.450); ABG PO2 (T) 80.2 mmHg (75.0-100.0); ALLEN'S TEST Modified; FCOHb 0.3 % (0.0-3.9); FLOW 9 L/min; FMetHb 0.3 % (0.0-1.5); FO2Hb 96.4 % (94-97); MODE Simple Mask; PATIENT TEMPERATURE 36.8; TOTAL HEMOGLOBIN 13.2 G/dl (12.0-16.0)
[2023-05-24 02:06] LABS: SODIUM 116 MMOL/L (135-145)
[2023-05-24] MEDS ORDERED: normal saline 1000ml 1,000 ML IV ONE ×4 (02:10→07:05)
[2023-05-24 02:29] LABS: PRO BRAIN NATRIURETIC PEPTIDE > 30000 PG/ML (0-450)
[2023-05-24 04:44] LABS: PLATELET ESTIMATE NORMAL
[2023-05-24 04:47] LABS: ANISOCYTOSIS 2+
[2023-05-24 05:37] LABS: BILIRUBIN,URINE NEGATIVE (Neg); CLARITY,URINE SLIGHTLY CLOUDY (Clear); COLOR,URINE YELLOW (Yellow); GLUCOSE, URINE NEGATIVE (Neg); KETONES,URINE TRACE mg/dl (Neg); LEUKOCYTE ESTERASE ,URINE MODERATE (Neg); NITRITES, URINE NEGATIVE (Neg); OCCULT BLOOD,URINE LARGE (Neg); PH,URINE 5.5 (4.8-8.0); PROTEIN,URINE 100 mg/dl (Neg); UROBILINOGEN,URINE 0.2 E.U/dL (0.2-1.0)
--- NOTE | 2023-05-24 05:40 | NUR ---
PT INITIALLY PRESENT W/ SOB, LS CTAB W/ DIM BASES, NO COUGH NOTED, 2+PE TO BLE. MEDS ADMIN PER ORDER W/ NO ASE NOTED THUS FAR. IV ABX ZOSYN AND VANCO PER ORDER W/ NO ASE NOTED. MD ORDERED 2L NS BOLUS AND 100 ML/ HR MAINTENANCE FLUID. AFTER ADMIN PT W/ S/SX MOIST COUGH. LS W/ WHEEZES ALL LOBES. NOTIFIED W/ N.O. 1 L BOLUS NS. THIS NURSE ADVISED OF CHANGE IN CONDITION AND NA+ 116, BUN 119, CREATININE 3.31, FC REPLACED PATENT AND DRAINING TP GRAVITY W/ DARK ODIFEROUS URINE NOTED ONLY 7 ML OUT THUS FAR. STATED LS AND MOIST COUGH D/T DX PNE, DECREASED URINE D/T DEHYDRATION AND CONT TO HANG NS 1L BOLUS. CRN AWARE. ORDERS CARRIED OUT PER ORDER. TROPS TRENDING DOWN FROM 165 TO 103. BG 162 REMAINS W/ NO S/SX HYPER/ HYPOGLYCEMIA. ALERT TO PPS PER BASELINE. VSS AT THIS TIME, BP REMAINS SOFT. REPEAT EKG REVEALS AFIB W/ MD JUAN JOSE AWARE. CODE STATUS DNR/ DNI SELECTIVE TX ONLY.
[2023-05-24 06:04] LABS: UA COLLECTION TYPE FOLEY CATH
[2023-05-24 06:06] LABS: BACTERIA,URINE 3+ /HPF (Neg); MUCUS STRANDS NONE SEEN /LPF (Neg); SQUAMOUS EPITHELIAL CELL,UR FEW /LPF (FEW)
--- NOTE | 2023-05-24 06:28 | NUR ---
Called Jose Enrique Mathis multiple times. No one has answered the phone until now. Nurse states Pt was given Flexeril 5mg, Chrissie 60mg, Gabapentin 300mg, Metoprolol 25mg, Singular 10mg, Sodium Tab 1gm, Preservision unknown dosage, Tessalon Perles 100mg, Lovastatin 20mg, Cilostazol 50mg, Colace 100mg, cranbrerry 900mg, Percocet 10 mg was given around 2200. Pt was then given Ativan 0.5mg around 03:30.
[2023-05-24] MEDS ORDERED: DOPamine 400mg/D5W 250ml 250 ML IV SCH (07:05)
[2023-05-24 07:20] LABS: ABG BASE EXCESS -12.2 mmol/L (-2.0-2.0); ABG HCO3 14.7 mmol/L (22.0-26.0); ABG OXYGEN SATURATION 91.3 % (94-97); ABG PCO2 (T) 37.9 mmHg (32.0-45.0); ABG PO2 (T) 65.8 mmHg (75.0-100.0); ALLEN'S TEST POSITIVE; FCOHb 0.3 % (0.0-3.9); FHHb 8.6 % (0.0-5.0); FLOW 10 L/min; FMetHb 0.4 % (0.0-1.5); FO2Hb 90.7 % (94-97); MODE MASK - SIMPLE; PATIENT TEMPERATURE 37.5; TOTAL HEMOGLOBIN 12.9 G/dl (12.0-16.0)
[2023-05-24] MEDS ORDERED: ringers solution, lacted 1,000 ML IV ONE ×2 (07:55)
--- NOTE | 2023-05-24 08:02 | NUR ---
Pt repositioned to her L side
[2023-05-24 08:56] LABS: BASOPHILS % (AUTO) 0.2 % (0-1); EOSINOPHILS % (AUTO) 0.1 % (0-6); HEMATOCRIT 29.8 % (35.0-45.0); HEMOGLOBIN 9.2 g/dl (12.0-16.0); LYMPHOCYTES # (AUTO) 0.2 X10'3 (1.1-4.8); LYMPHOCYTES % (AUTO) 1.4 % (21-51); MEAN CORPUSCULAR HEMOGLOBIN 28.1 PG (27.0-31.0); MEAN CORPUSCULAR HGB CONC 30.8 g/dL (33.0-36.5); MEAN CORPUSCULAR VOLUME 90.9 FL (78-98); MEAN PLATELET VOLUME 7.8 FL (7.4-10.4); MONOCYTES # (AUTO) 0.8 X10'3 (0-0.9); MONOCYTES % (AUTO) 4.9 % (2-12); NEUTROPHILS # (AUTO) 14.8 X10'3 (1.8-7.7); NEUTROPHILS % (AUTO) 93.4 % (42-75); PLATELET COUNT 136 X10'3 (140-440); RED BLOOD COUNT 3.28 X10'6 (4.20-5.60); WHITE BLOOD COUNT 15.9 X10'3 (4.5-11.0)
--- NOTE | 2023-05-24 09:00 | NUR ---
Pt repositioned to her back
[2023-05-24 09:01] LABS: ALANINE AMINOTRANSFERASE 15 U/L (12-78); ALBUMIN 1.8 G/DL (3.4-5.0); ALBUMIN/GLOBULIN RATIO 0.5 (1.1-1.5); ALKALINE PHOSPHATASE 98 IU/L (46-116); ANION GAP 14 (8-16); ASPARTATE AMINO TRANSFERASE 21 U/L (10-37); BILIRUBIN,TOTAL 0.6 MG/DL (0.1-1.0); BLOOD UREA NITROGEN 102 MG/DL (7-18); BUN/CREATININE RATIO 35.4 (10.0-20.0); CALCIUM 8.3 MG/DL (8.5-10.1); CHLORIDE 91 MMOL/L (99-107); CREATININE 2.88 MG/DL (0.40-0.90); GLUCOSE 151 MG/DL (70-104); SODIUM 121 MMOL/L (135-145); TOTAL CARBON DIOXIDE 16.3 MMOL/L (24-32); TOTAL PROTEIN 5.7 G/DL (6.4-8.2); eCRCL 12 ML/MIN; eGFR 16 ML/MIN
[2023-05-24 09:34] LABS: POTASSIUM 4.2 MMOL/L (3.5-5.1)
[2023-05-24] MEDS ORDERED: amiodarone 50MG/ML inj IV STA (10:16)
[2023-05-24] MEDS ORDERED: adenosine 3mg/ml 2ml vial IV ONE ×2 (10:20)
[2023-05-24] MEDS ORDERED: amiodarone in dextrose, iso-osm 150mg/100ml bag IV STA (10:25)
[2023-05-24] MEDS ORDERED: ondansetron/PF 4mg/2ml inj IV PRN (10:30)
[2023-05-24] MEDS ORDERED: acetaminophen 325mg tablet PO PRN (10:30)
[2023-05-24] MEDS ORDERED: LidoCAINE 2% Topical Jelly 11mL syringe TOP ONE (10:30)
[2023-05-24] MEDS ORDERED: magnesium hydroxide 30ml (MOM) UD suspension PO PRN (10:30)
[2023-05-24] MEDS ORDERED: metoprolol tartrate 1mg/ml inj IV ONE (10:30)
[2023-05-24] MEDS ORDERED: morphine 4 MG/ML inj SYRINge IV PRN (10:30)
[2023-05-24] MEDS ORDERED: NORMAL SALINE IV STA (10:36)
[2023-05-24] MEDS ORDERED: TOBRAMYCIN IV STA (10:36)
[2023-05-24] MEDS: normal saline 1000ml 1,000 ML IV SCH ×2 (10:38→23:11)
[2023-05-24] MEDS: piperacillin/tazo 3.375gm/50ml 50 ML IV SCH ×2 (10:48→18:41)
--- NOTE | 2023-05-24 11:00 | NUR ---
Pt repositioned to her R side
--- NOTE | 2023-05-24 11:13 | NUR ---
Oral care provided
--- NOTE | 2023-05-24 11:27 | NUR ---
update was given to family member Chris that called
[2023-05-24] MEDS ORDERED: CYCL-394 PO (11:28)
[2023-05-24] MEDS ORDERED: ACET-1008 PO (11:28)
[2023-05-24] MEDS ORDERED: CRAN450T4 PO (11:28)
[2023-05-24] MEDS ORDERED: TRAM50TA2 PO (11:28)
[2023-05-24] MEDS ORDERED: MONT-47 PO (11:28)
[2023-05-24] MEDS ORDERED: DOCU-148 PO (11:28)
[2023-05-24] MEDS ORDERED: SODI100035 PO (11:28)
[2023-05-24] MEDS ORDERED: OMEP40CA21 PO (11:28)
[2023-05-24] MEDS ORDERED: INSU100C4 SQ (11:28)
[2023-05-24] MEDS ORDERED: FEXO-353 PO (11:28)
[2023-05-24] MEDS ORDERED: VIT1CAPS9 PO (11:28)
[2023-05-24] MEDS ORDERED: OXYC-150 PO (11:28)
--- NOTE | 2023-05-24 13:30 | NUR ---
Pt. arrived to CICU from ER. Hooked up to monitor, BP 82/50 map of 61, HR of 108, O2 97% on non rebreather at 15L. Pressure sore on sacrum on arrival, picture taken and is in chart.
[2023-05-24] MEDS ORDERED: NORepinephrine 8mg/ 250ml NS 250 ML IV ONE (15:16)
[2023-05-24] MEDS: NORepinephrine 8mg/ 250ml NS 250 ML IV SCH (15:32)
--- NOTE | 2023-05-24 16:02 | NUR ---
Pt.s blood pressure systolic 60's/70's and MAP in 40's/50's. Received order from Dr. Carlton for Levophed. Dr. Carlton stated to run Levophed through peripheral IV.
[2023-05-24] MEDS ORDERED: ASCO500C17 PO (17:11)
[2023-05-24] MEDS ORDERED: OMEG100037 PO (17:11)
[2023-05-24] MEDS ORDERED: BENZ-38 PO (17:11)
--- NOTE | 2023-05-24 18:13 | NUR ---
Report given to LAMBERT Correia.
[2023-05-24] MEDS: famotidine/PF 10 mg/ml inj IV SCH (19:29)
--- NOTE | 2023-05-24 20:44 | NUR ---
PIV that was running Norepi infiltrated. New IV started and norepi placed there. The AM MD was aware the norepi was going through PIV and was OK with it. I have tried to call dr. Warner to get phentolamine for extravasation. No answer, will call again in a few minutes.
--- NOTE | 2023-05-24 20:56 | NUR ---
Dr. Warner called back. He said he doesn't see a need for the phentolamine for extravasation and to just treat it locally with warm compress and elevation.
--- NOTE | 2023-05-24 21:27 | NUR ---
Dr. Warner rounded on pt. Nothing new to add for now. If pt gets any worse clinically he'd like an ABG checked and reported to him otherwise OK to just get one in the AM. increased IVF from 75 to 100/hr.
[2023-05-25] VITALS (29 sets, daily range): BP systolic 64–122; BP diastolic 36–71; PULSE 57–192; RESP 13–32; O2SAT 86–99
[2023-05-25 00:13] LABS: ABG BASE EXCESS -10.8 mmol/L (-2.0-2.0); ABG HCO3 15.1 mmol/L (22.0-26.0); ABG OXYGEN SATURATION 91.1 % (94-97); ABG PCO2 (T) 34.3 mmHg (32.0-45.0); ABG PH (T) 7.262 (7.350-7.450); ABG PO2 (T) 61.9 mmHg (75.0-100.0); ALLEN'S TEST POSITIVE; FCOHb 0.3 % (0.0-3.9); FHHb 8.8 % (0.0-5.0); FLOW 3 L/min; FMetHb 0.3 % (0.0-1.5); FO2Hb 90.6 % (94-97); MODE NASAL CANNULA; PATIENT TEMPERATURE 37.3; TOTAL HEMOGLOBIN 13.2 G/dl (12.0-16.0)
[2023-05-25] MEDS ORDERED: adenosine 3mg/ml 2ml vial IV ONE ×2 (02:06→02:10)
[2023-05-25] MEDS ORDERED: amiodarone 150mg/dext, iso-os 100 ML IV ONE (02:10)
[2023-05-25 02:18] LABS: ALBUMIN 1.9 G/DL (3.4-5.0); ANION GAP 18 (8-16); BLOOD UREA NITROGEN 96 MG/DL (7-18); BUN/CREATININE RATIO 35.7 (10.0-20.0); CALCIUM 8.8 MG/DL (8.5-10.1); CHLORIDE 93 MMOL/L (99-107); CREATININE 2.69 MG/DL (0.40-0.90); GLUCOSE 155 MG/DL (70-104); SODIUM 129 MMOL/L (135-145); TOTAL CARBON DIOXIDE 18.2 MMOL/L (24-32); eCRCL 12 ML/MIN; eGFR 17 ML/MIN
[2023-05-25 02:19] LABS: HEMOGLOBIN A1C 6.4 % (4.5-6.2)
[2023-05-25] MEDS: amiodarone/D5 360MG/200ML BAG 200 ML IV SCH ×5 (02:20→22:03)
--- NOTE | 2023-05-25 02:22 | NUR ---
at approx 0200 pt went into a rapid narrow complex rhythm. Dr. Warner notified. Adenosine 6mg given while EKG was being prepped. Adenosine had no effect. EKG showed Afib RVR, Dr. Warner updated before second adenosine dose given, switched therapies to amiodarone bolus/drip. Pt's BP did drop during this and Norepi was increased.
[2023-05-25] MEDS: piperacillin/tazo 3.375gm/50ml 50 ML IV SCH ×3 (02:34→21:33)
[2023-05-25] MEDS ORDERED: digoxin 250mcg/ml 2ml ampule ONE (02:43)
[2023-05-25] MEDS ORDERED: digoxin 250mcg/ml 2ml ampule IV ONE ×2 (02:45→08:45)
--- NOTE | 2023-05-25 02:52 | NUR ---
Dr. Warner updated on pt. Wants to add vasopressin (again MD is aware there is no CVC) and Dig load. Spoke to pt about goals of care since we're getting pretty aggressive at this point and she doesn't appear comfortable. She said it was up to me how long we continue being aggressive, I told her she needed to let us know how much longer she wants us to treat her aggressively vs perhaps pruning down therapies to something more comfortable. She would like us to call Arlyn her friend/POA. Called Arlyn and left message, will attempt again in about 5 to 10 min.
[2023-05-25 03:10] LABS: ALANINE AMINOTRANSFERASE 11 U/L (12-78); ALBUMIN/GLOBULIN RATIO 0.4 (1.1-1.5); ALKALINE PHOSPHATASE 108 IU/L (46-116); ASPARTATE AMINO TRANSFERASE 17 U/L (10-37); BILIRUBIN,TOTAL 0.6 MG/DL (0.1-1.0); DIGOXIN 0.2 NG/ML (0.9-1.9); MAGNESIUM 1.8 MG/DL (1.5-2.4); TOTAL PROTEIN 6.4 G/DL (6.4-8.2)
[2023-05-25 03:15] LABS: BASOPHILS % (AUTO) 0.2 % (0-1); EOSINOPHILS % (AUTO) 0 % (0-6); HEMATOCRIT 39.7 % (35.0-45.0); HEMOGLOBIN 12.5 g/dl (12.0-16.0); LYMPHOCYTES # (AUTO) 0.4 X10'3 (1.1-4.8); LYMPHOCYTES % (AUTO) 1.9 % (21-51); MEAN CORPUSCULAR HEMOGLOBIN 27.7 PG (27.0-31.0); MEAN CORPUSCULAR HGB CONC 31.6 g/dL (33.0-36.5); MEAN CORPUSCULAR VOLUME 87.8 FL (78-98); MEAN PLATELET VOLUME 8.4 FL (7.4-10.4); MONOCYTES # (AUTO) 0.8 X10'3 (0-0.9); MONOCYTES % (AUTO) 3.9 % (2-12); NEUTROPHILS # (AUTO) 19.9 X10'3 (1.8-7.7); RED BLOOD COUNT 4.52 X10'6 (4.20-5.60); RED CELL DISTRIBUTION WIDTH 19.3 % (11.5-14.5); WHITE BLOOD COUNT 21.1 X10'3 (4.5-11.0)
[2023-05-25] MEDS: vasopressin inj. 40 UNIT in normal saline 50ml IV soln 38 ML IV SCH ×2 (03:29→14:30)
[2023-05-25 03:34] LABS: PLATELET COUNT 196 X10'3 (140-440)
[2023-05-25] MEDS: NORepinephrine 8mg/ 250ml NS 250 ML IV SCH ×2 (03:57→16:39)
[2023-05-25] MEDS: PHENYLephrine 10mg/ml inj. 50 MG in normal saline 250ml IV soln 245 ML IV PRN ×2 (04:18→15:00)
--- NOTE | 2023-05-25 04:19 | NUR ---
Dr. Warner wanted to switch to Neosynephrine in an attempt to help with the HR and given that the pt has no CVC.
[2023-05-25] MEDS ORDERED: enoxaparin 40mg/0.4ml syringe SUBCUT SCH (08:00)
[2023-05-25] MEDS: famotidine/PF 10 mg/ml inj IV SCH (08:09)
[2023-05-25] MEDS: normal saline 1000ml 1,000 ML IV SCH ×2 (09:11→15:10)
--- NOTE | 2023-05-25 10:54 | NUR ---
Nutrition consult: Per physician note pt admit for severe septic shock with UTI and EDUARDO. Per EMR pt with T2DM, well controlled with A1c 6.4%, DM education not warranted at this time. Per RN/LOOSELEAF BINDER COVERER skin assessment pt with an open wound to sacrum, no wound care consult at this time. Pt currently NPO. No documented BM since admit, PRN bowel care available. Will continue to follow closely and make recommendations as appropriate. Recommendations: 1) Advance to heart healthy diet as medically indicated; monitor renal status and need for renal diet 2) Monitor need for ONS/additional protein with diet advancement 3) Routine bowel care 4) Weekly scaled weights Addendum: 05/25/23 at [address] Amended: Links added.
[2023-05-25] MEDS ORDERED: famotidine/PF 10 mg/ml inj IV SCH (13:45)
[2023-05-26] VITALS (33 sets, daily range): BP systolic 86–113; BP diastolic 47–72; PULSE 102–110; RESP 12–24; O2SAT 88–100
[2023-05-26] MEDS: normal saline 1000ml 1,000 ML IV SCH ×2 (00:38→07:20)
[2023-05-26 02:08] LABS: BASOPHILS % (AUTO) 0.1 % (0-1); EOSINOPHILS % (AUTO) 0.1 % (0-6); HEMATOCRIT 37.2 % (35.0-45.0); HEMOGLOBIN 11.7 g/dl (12.0-16.0); LYMPHOCYTES # (AUTO) 0.5 X10'3 (1.1-4.8); MEAN CORPUSCULAR HEMOGLOBIN 27.5 PG (27.0-31.0); MEAN CORPUSCULAR HGB CONC 31.4 g/dL (33.0-36.5); MEAN CORPUSCULAR VOLUME 87.6 FL (78-98); MEAN PLATELET VOLUME 7.9 FL (7.4-10.4); MONOCYTES # (AUTO) 0.7 X10'3 (0-0.9); MONOCYTES % (AUTO) 6.1 % (2-12); NEUTROPHILS # (AUTO) 10.5 X10'3 (1.8-7.7); NEUTROPHILS % (AUTO) 89.7 % (42-75); PLATELET COUNT 194 X10'3 (140-440); RED BLOOD COUNT 4.24 X10'6 (4.20-5.60); RED CELL DISTRIBUTION WIDTH 19.7 % (11.5-14.5); WHITE BLOOD COUNT 11.7 X10'3 (4.5-11.0)
[2023-05-26] MEDS: amiodarone/D5 360MG/200ML BAG 200 ML IV SCH ×4 (02:10→20:06)
[2023-05-26 02:20] LABS: ALANINE AMINOTRANSFERASE 11 U/L (12-78); ALBUMIN 1.8 G/DL (3.4-5.0); ALBUMIN/GLOBULIN RATIO 0.4 (1.1-1.5); ALKALINE PHOSPHATASE 98 IU/L (46-116); ANION GAP 16 (8-16); ASPARTATE AMINO TRANSFERASE 23 U/L (10-37); BILIRUBIN,TOTAL 0.4 MG/DL (0.1-1.0); BLOOD UREA NITROGEN 91 MG/DL (7-18); BUN/CREATININE RATIO 36.4 (10.0-20.0); CHLORIDE 96 MMOL/L (99-107); GLUCOSE 189 MG/DL (70-104); POTASSIUM 3.8 MMOL/L (3.5-5.1); SODIUM 129 MMOL/L (135-145); TOTAL CARBON DIOXIDE 17.4 MMOL/L (24-32); TOTAL PROTEIN 5.9 G/DL (6.4-8.2); eCRCL 13 ML/MIN; eGFR 18 ML/MIN
[2023-05-26 03:17] LABS: ANISOCYTOSIS 2+; ELLIPTOCYTES FEW; PLATELET ESTIMATE NORMAL
[2023-05-26 03:19] LABS: BURR CELLS 1+
[2023-05-26] MEDS: vasopressin inj. 40 UNIT in normal saline 50ml IV soln 38 ML IV SCH (03:58)
[2023-05-26] MEDS: NORepinephrine 8mg/ 250ml NS 250 ML IV SCH (05:21)
--- NOTE | 2023-05-26 06:38 | NUR ---
Patient in room CICU 2010. I have received report from Cyndee VERDIN and had the opportunity to ask questions and assume patient care.
[2023-05-26] MEDS: pantoprazole 40MG/NS 100ML BAG 100 ML IV SCH (07:19)
[2023-05-26] MEDS: enoxaparin 30mg/0.3ml syringe SUBCUT SCH (07:20)
[2023-05-26] MEDS ORDERED: dextrose 50%-water 50ml dispensing syringe IV PRN ×2 (10:45)
[2023-05-26] MEDS ORDERED: MESSAGE TO PHARMACY PO ONE (10:45)
[2023-05-26] MEDS ORDERED: glucagon, human recombinant 1mg kit SUBCUT PRN (10:45)
[2023-05-26] MEDS ORDERED: DEXTROSE 15 GM of carb/4 tabs (each vial/BOTTLE has 4 tablets) PO PRN ×2 (10:45)
--- NOTE | 2023-05-26 10:55 | NUR ---
Sent a page to
[2023-05-26] MEDS: piperacillin/tazo 3.375gm/50ml 50 ML IV SCH ×2 (10:57→22:47)
--- NOTE | 2023-05-26 11:18 | NUR ---
Edwin WOODARD at bedside.
[2023-05-26 13:11] LABS: ABG BASE EXCESS -11.9 mmol/L (-2.0-2.0); ABG HCO3 14.6 mmol/L (22.0-26.0); ABG OXYGEN SATURATION 93.4 % (94-97); ABG PCO2 (T) 34.3 mmHg (32.0-45.0); ABG PH (T) 7.243 (7.350-7.450); ABG PO2 (T) 66.4 mmHg (75.0-100.0); ALLEN'S TEST POSITIVE; FCOHb 0.2 % (0.0-3.9); FHHb 6.6 % (0.0-5.0); FLOW 8 L/min; FMetHb 0.3 % (0.0-1.5); FO2Hb 92.9 % (94-97); MODE SALTER NASAL CANNULA; PATIENT TEMPERATURE 36.6; TOTAL HEMOGLOBIN 12.9 G/dl (12.0-16.0)
[2023-05-26] MEDS ORDERED: sodium bicarbonate (8.4%) inj. 150 MEQ in dextrose 5%-water 1,000 ML IV SCH (14:00)
[2023-05-26] MEDS ORDERED: SODIUM BICARB IV SCH (14:00)
[2023-05-26] MEDS ORDERED: [UNRECOGNIZED DRUG - OTHER] IV SCH (14:00)
[2023-05-26] MEDS: ipratropium/albuterol 3ml nebule NEB PRN (14:38)
[2023-05-26] MEDS: sodium bicarbonate (8.4%) inj. 150 MEQ in sodium chloride 0.45% 1,000 ML IV SCH (14:46)
--- NOTE | 2023-05-26 18:22 | NUR ---
Problems reprioritized. Patient report given, questions answered & plan of care reviewed with Cyndee VERDIN.
[2023-05-26] MEDS: nystatin 15 GM powder TP SCH (20:05)
[2023-05-26] MEDS: insulin glargine (Lantus) pen - multi-dose SQ SCH (21:00)
[2023-05-27] VITALS (28 sets, daily range): BP systolic 90–151; BP diastolic 50–79; PULSE 102–119; RESP 16–23; O2SAT 90–99
[2023-05-27] MEDS: amiodarone/D5 360MG/200ML BAG 200 ML IV SCH ×2 (02:10→07:37)
[2023-05-27 02:32] LABS: BASOPHILS % (AUTO) 0.4 % (0-1); EOSINOPHILS % (AUTO) 0.2 % (0-6); HEMATOCRIT 37.8 % (35.0-45.0); HEMOGLOBIN 11.9 g/dl (12.0-16.0); LYMPHOCYTES # (AUTO) 0.7 X10'3 (1.1-4.8); LYMPHOCYTES % (AUTO) 5.9 % (21-51); MEAN CORPUSCULAR HEMOGLOBIN 27.6 PG (27.0-31.0); MEAN CORPUSCULAR HGB CONC 31.6 g/dL (33.0-36.5); MEAN CORPUSCULAR VOLUME 87.6 FL (78-98); MEAN PLATELET VOLUME 7.7 FL (7.4-10.4); MONOCYTES # (AUTO) 0.7 X10'3 (0-0.9); MONOCYTES % (AUTO) 6.3 % (2-12); NEUTROPHILS # (AUTO) 9.6 X10'3 (1.8-7.7); NEUTROPHILS % (AUTO) 87.2 % (42-75); PLATELET COUNT 229 X10'3 (140-440); RED BLOOD COUNT 4.32 X10'6 (4.20-5.60); RED CELL DISTRIBUTION WIDTH 19.9 % (11.5-14.5)
[2023-05-27 02:51] LABS: ALANINE AMINOTRANSFERASE 12 U/L (12-78); ALBUMIN 1.7 G/DL (3.4-5.0); ALBUMIN/GLOBULIN RATIO 0.4 (1.1-1.5); ALKALINE PHOSPHATASE 89 IU/L (46-116); ANION GAP 16 (8-16); ASPARTATE AMINO TRANSFERASE 19 U/L (10-37); BILIRUBIN,TOTAL 0.3 MG/DL (0.1-1.0); BLOOD UREA NITROGEN 87 MG/DL (7-18); CALCIUM 9.1 MG/DL (8.5-10.1); CHLORIDE 100 MMOL/L (99-107); CREATININE 2.29 MG/DL (0.40-0.90); GLUCOSE 162 MG/DL (70-104); POTASSIUM 3.1 MMOL/L (3.5-5.1); SODIUM 135 MMOL/L (135-145); TOTAL CARBON DIOXIDE 18.9 MMOL/L (24-32); TOTAL PROTEIN 5.9 G/DL (6.4-8.2); eCRCL 15 ML/MIN; eGFR 20 ML/MIN
[2023-05-27] MEDS ORDERED: magnesium 4gm in 100ml NS 100 ML IV PRN (03:25)
[2023-05-27] MEDS ORDERED: magnesium 2GM in 50ml NS 50 ML IV PRN (03:25)
[2023-05-27] MEDS: potassium Cl 40MEQ/270ML bag 270 ML IV PRN (03:40)
[2023-05-27] MEDS: sodium bicarbonate (8.4%) inj. 150 MEQ in sodium chloride 0.45% 1,000 ML IV SCH ×3 (06:06→22:58)
--- NOTE | 2023-05-27 06:30 | NUR ---
Patient in room CICU 2010. I have received report from geronimo and had the opportunity to ask questions and assume patient care.
[2023-05-27] MEDS: pantoprazole 40MG/NS 100ML BAG 100 ML IV SCH (07:38)
[2023-05-27] MEDS: enoxaparin 30mg/0.3ml syringe SUBCUT SCH (07:39)
[2023-05-27] MEDS ORDERED: K and/or MAG REPLACEMENT MC SCH (08:00)
[2023-05-27] MEDS: nystatin 15 GM powder TP SCH ×2 (08:00→20:13)
[2023-05-27 09:54] LABS: ABG BASE EXCESS -6.9 mmol/L (-2.0-2.0); ABG HCO3 18.4 mmol/L (22.0-26.0); ABG OXYGEN SATURATION 95.8 % (94-97); ABG PCO2 (T) 36.2 mmHg (32.0-45.0); ABG PH (T) 7.323 (7.350-7.450); ABG PO2 (T) 76.8 mmHg (75.0-100.0); ALLEN'S TEST POSITIVE; FCOHb 0.2 % (0.0-3.9); FHHb 4.2 % (0.0-5.0); FLOW 6 L/min; FMetHb 0.3 % (0.0-1.5); FO2Hb 95.3 % (94-97); MODE SALTER NASAL CANNULA; TOTAL HEMOGLOBIN 12.9 G/dl (12.0-16.0)
--- NOTE | 2023-05-27 11:15 | NUR ---
Reassessment: Pt seen by wound care, per note pt with a DTI to left elbow and an unstageable PI to coccyx. Pt now on a pureed diet with thin liquids per ST recs and pt documented to have only consumed 25% of protein only at first two meals. Per RN at [facility] pt consumed 0% of eggs though ate the pancake and coffee at breakfast this morning. IF PO intake does not improve pt would benefit from ONS to assist with meeting estimated nutrient needs. LBM 05/23 per EMR. Pt received first PRN MoM 05/26 per EMR. Will continue to follow closely. Recommendations: 1) Continue pureed diet with thin liquids per ST recs; advance to heart healthy diet once meal intake improves; monitor renal status and need for renal diet 2) Monitor need for ONS/additional protein pending trends in PO intake 3) Routine bowel care 4) Weekly scaled weights Addendum: 05/27/23 at [address] Amended: Links added.
[2023-05-27] MEDS: amiodarone 200mg tablet PO SCH ×2 (11:58→20:13)
[2023-05-27] MEDS: meropenem inj 500 MG in normal saline 100ml IV soln 100 ML IV SCH ×2 (11:58→20:13)
--- NOTE | 2023-05-27 14:51 | NUR ---
pt drowsy today- awakens easily, mumbles at times- mostly oriented. abgs done- improved. amiodarone gtt dcd after po given. midline placed by picc nurse with some difficulty- sc cl dcd. o2 to 5lnc
[2023-05-27] MEDS: insulin glargine (Lantus) pen - multi-dose SQ SCH (21:00)
[2023-05-28] VITALS (26 sets, daily range): BP systolic 98–139; BP diastolic 52–88; PULSE 108–144; RESP 16–25; TEMP 97.7–97.9; O2SAT 90–96
[2023-05-28 02:31] LABS: BASOPHILS % (AUTO) 0.1 % (0-1); EOSINOPHILS % (AUTO) 0.3 % (0-6); LYMPHOCYTES # (AUTO) 0.8 X10'3 (1.1-4.8); LYMPHOCYTES % (AUTO) 6.4 % (21-51); MEAN CORPUSCULAR HEMOGLOBIN 27.5 PG (27.0-31.0); MEAN CORPUSCULAR HGB CONC 31.4 g/dL (33.0-36.5); MEAN CORPUSCULAR VOLUME 87.4 FL (78-98); MONOCYTES # (AUTO) 0.9 X10'3 (0-0.9); MONOCYTES % (AUTO) 6.8 % (2-12); NEUTROPHILS # (AUTO) 10.9 X10'3 (1.8-7.7); NEUTROPHILS % (AUTO) 86.4 % (42-75); PLATELET COUNT 258 X10'3 (140-440); RED BLOOD COUNT 4.35 X10'6 (4.20-5.60); RED CELL DISTRIBUTION WIDTH 19.9 % (11.5-14.5); WHITE BLOOD COUNT 12.6 X10'3 (4.5-11.0)
[2023-05-28 02:44] LABS: ALANINE AMINOTRANSFERASE 14 U/L (12-78); ALBUMIN 1.8 G/DL (3.4-5.0); ALBUMIN/GLOBULIN RATIO 0.4 (1.1-1.5); ALKALINE PHOSPHATASE 86 IU/L (46-116); ANION GAP 11 (8-16); ASPARTATE AMINO TRANSFERASE 20 U/L (10-37); BILIRUBIN,TOTAL 0.3 MG/DL (0.1-1.0); BLOOD UREA NITROGEN 80 MG/DL (7-18); BUN/CREATININE RATIO 38.1 (10.0-20.0); CALCIUM 9.1 MG/DL (8.5-10.1); CHLORIDE 100 MMOL/L (99-107); GLUCOSE 178 MG/DL (70-104); POTASSIUM 3.3 MMOL/L (3.5-5.1); SODIUM 136 MMOL/L (135-145); TOTAL PROTEIN 5.9 G/DL (6.4-8.2); eCRCL 16 ML/MIN; eGFR 23 ML/MIN
[2023-05-28] MEDS: potassium Cl 40MEQ/270ML bag 270 ML IV PRN (03:46)
--- NOTE | 2023-05-28 06:12 | NUR ---
Patient in room CICU 2010. I have received report from Naif VERDIN and had the opportunity to ask questions and assume patient care.
--- NOTE | 2023-05-28 06:13 | NUR ---
Patient in room CICU 2010. I have received report from Cyndee VERDIN and had the opportunity to ask questions and assume patient care.
[2023-05-28] MEDS: amiodarone 200mg tablet PO SCH ×2 (08:23→20:05)
[2023-05-28] MEDS: pantoprazole 40MG/NS 100ML BAG 100 ML IV SCH (08:24)
[2023-05-28] MEDS: nystatin 15 GM powder TP SCH ×2 (08:24→20:06)
[2023-05-28] MEDS: meropenem inj 500 MG in normal saline 100ml IV soln 100 ML IV SCH ×2 (08:24→21:32)
[2023-05-28] MEDS: enoxaparin 30mg/0.3ml syringe SUBCUT SCH (08:24)
[2023-05-28] MEDS ORDERED: potassium Cl 20 mEq SR tablet PO PRN (08:45)
[2023-05-28] MEDS ORDERED: magnesium 4gm in 100ml NS 100 ML IV PRN (08:45)
[2023-05-28] MEDS ORDERED: magnesium 2GM in 50ml NS 50 ML IV PRN (08:45)
[2023-05-28] MEDS: insulin Lispro (HumaLOG) vial - multi-dose SQ SCH ×3 (09:27→20:05)
[2023-05-28] MEDS: ipratropium/albuterol 3ml nebule NEB PRN (09:50)
[2023-05-28] MEDS: potassium Cl 20 mEq SR tablet PO PRN ×2 (10:17→17:46)
--- NOTE | 2023-05-28 11:10 | NUR ---
Noted sinus tachy 120-160, paged Dr. Suresh.Also,pt was still wheezy even after breathing tx. Awaiting for Dr. Suresh's call.
--- NOTE | 2023-05-28 11:20 | NUR ---
Dr. Suresh at bedside,ordered chest xray.Patient's HR still 126 sinus tach on the monitor,no new med order,instructed to call/page him if HR 130.
--- NOTE | 2023-05-28 13:47 | NUR ---
Patient coughs with every drink of water, will downgrade diet to NTL.
--- NOTE | 2023-05-28 14:28 | NUR ---
Low to no oral intake, Dr. Kerwin stone.Elva VERDIN unavailable at this time to receive report.
--- NOTE | 2023-05-28 15:38 | NUR ---
New order acknowledged, corpak placement,Arlyn/MIGUEL ÁNGEL called and made aware, patient agreeable to the new order.
[2023-05-28] MEDS: sodium bicarbonate (8.4%) inj. 150 MEQ in sodium chloride 0.45% 1,000 ML IV SCH (16:18)
--- NOTE | 2023-05-28 16:21 | NUR ---
Corpak placed to right nare with good bowel sound,patient tolerated procedure.Radiology at bedside for placement confirmation.
--- NOTE | 2023-05-28 16:25 | NUR ---
Corpak to right nare pulled out by patient.Refused corpak re insertion.
--- NOTE | 2023-05-28 16:30 | NUR ---
Patient in room CICU 2010. I have received report from Cintia VERDIN and had the opportunity to ask questions and awaiting patients arrival
--- NOTE | 2023-05-28 16:54 | NUR ---
Patient to room 3009, tech at bedside, Elva VERDIN made aware regarding patient's refusal to corpak and that conor/sherie is not aware.RN will relay information as well as to Dr. Suresh.
--- NOTE | 2023-05-28 17:27 | NUR ---
Patient in room PCU 3009. I have received report from leighton VERDIN and had the opportunity to ask questions and assume patient care.Patient HR 127. continues with O2@3L. Refusing corrpack to be placed back. Will inform Dr Suresh
[2023-05-28] MEDS: normal saline 1000ml 1,000 ML IV SCH (17:46)
--- NOTE | 2023-05-28 18:45 | NUR ---
Patient appears stable . Able to swalloe applesauce with potassium pill inside. Dr mansfield stated ok for patient to not have corpack in. To continue with pureed diet. report given to prudence Rn
--- NOTE | 2023-05-28 19:04 | NUR ---
Patient in room PCU 3009. I have received report from MAIRA VERDIN and had the opportunity to ask questions and assume patient care.
[2023-05-28] MEDS: metoprolol tartrate 25mg tablet PO SCH (20:06)
[2023-05-28] MEDS: insulin glargine (Lantus) pen - multi-dose SQ SCH (21:43)
[2023-05-29] VITALS (7 sets, daily range): BP systolic 122–140; BP diastolic 81–88; PULSE 61–132; RESP 20–25; TEMP 97.4–97.7; O2SAT 92–97
[2023-05-29] MEDS: normal saline 1000ml 1,000 ML IV SCH ×3 (01:40→22:16)
--- NOTE | 2023-05-29 06:28 | NUR ---
Patient in room PCU 3009. I have received report from mar VERDIN and had the opportunity to ask questions and assume patient care.
--- NOTE | 2023-05-29 06:32 | NUR ---
Problems reprioritized. Patient report given, questions answered & plan of care reviewed with MAIRA VERDIN.
[2023-05-29] MEDS: pantoprazole 40MG/NS 100ML BAG 100 ML IV SCH (07:23)
[2023-05-29] MEDS: nystatin 15 GM powder TP SCH ×2 (07:23→20:08)
[2023-05-29] MEDS: meropenem inj 500 MG in normal saline 100ml IV soln 100 ML IV SCH ×2 (07:23→20:06)
[2023-05-29] MEDS: amiodarone 200mg tablet PO SCH ×2 (07:23→20:07)
[2023-05-29] MEDS: enoxaparin 30mg/0.3ml syringe SUBCUT SCH (07:24)
[2023-05-29] MEDS: metoprolol tartrate 25mg tablet PO SCH ×2 (07:38→20:08)
[2023-05-29] MEDS: K and/or MAG REPLACEMENT MC SCH (08:00)
[2023-05-29 11:31] LABS: BASOPHILS % (AUTO) 0.2 % (0-1); EOSINOPHILS % (AUTO) 0.2 % (0-6); HEMATOCRIT 38.5 % (35.0-45.0); HEMOGLOBIN 12.2 g/dl (12.0-16.0); LYMPHOCYTES # (AUTO) 1.5 X10'3 (1.1-4.8); LYMPHOCYTES % (AUTO) 8.3 % (21-51); MEAN CORPUSCULAR HEMOGLOBIN 27.8 PG (27.0-31.0); MEAN CORPUSCULAR HGB CONC 31.8 g/dL (33.0-36.5); MEAN CORPUSCULAR VOLUME 87.6 FL (78-98); MEAN PLATELET VOLUME 7.8 FL (7.4-10.4); MONOCYTES # (AUTO) 0.9 X10'3 (0-0.9); MONOCYTES % (AUTO) 4.7 % (2-12); NEUTROPHILS # (AUTO) 15.7 X10'3 (1.8-7.7); NEUTROPHILS % (AUTO) 86.6 % (42-75); PLATELET COUNT 304 X10'3 (140-440); RED BLOOD COUNT 4.39 X10'6 (4.20-5.60); RED CELL DISTRIBUTION WIDTH 19.7 % (11.5-14.5); WHITE BLOOD COUNT 18.2 X10'3 (4.5-11.0)
[2023-05-29 11:45] LABS: ALANINE AMINOTRANSFERASE 28 U/L (12-78); ALBUMIN 1.8 G/DL (3.4-5.0); ALBUMIN/GLOBULIN RATIO 0.4 (1.1-1.5); ALKALINE PHOSPHATASE 86 IU/L (46-116); ANION GAP 15 (8-16); ASPARTATE AMINO TRANSFERASE 44 U/L (10-37); BILIRUBIN,TOTAL 0.4 MG/DL (0.1-1.0); BLOOD UREA NITROGEN 67 MG/DL (7-18); BUN/CREATININE RATIO 35.8 (10.0-20.0); CALCIUM 8.6 MG/DL (8.5-10.1); CHLORIDE 101 MMOL/L (99-107); CREATININE 1.87 MG/DL (0.40-0.90); GLUCOSE 130 MG/DL (70-104); MAGNESIUM 1.7 MG/DL (1.5-2.4); POTASSIUM 3.8 MMOL/L (3.5-5.1); SODIUM 135 MMOL/L (135-145); TOTAL CARBON DIOXIDE 19.4 MMOL/L (24-32); TOTAL PROTEIN 5.9 G/DL (6.4-8.2); eCRCL 18 ML/MIN; eGFR 26 ML/MIN
[2023-05-29] MEDS ORDERED: ondansetron 4mg rapidly disintigrating tab PO PRN (12:00)
--- NOTE | 2023-05-29 16:20 | NUR ---
TF Consult: Pt to start TF w/ corpak placed given poor intake however pt pulled corpak and it will remain out since able to tolerate pills w/ applesauce per EMR. Pt PO intake remains mostly 0% or refusing now on pureed/nectar thick/carb controlled diet; per RN today pt able to tolerate thin liquids to change back to thins. RD d/w RN regarding removal of carb restriction if DO agreeable since A1C 6.4%, advanced age, and poor intake. RD notified DO recommends Ensure Plus High Protein TIDWM. Recommendations: 1) Continue pureed diet with thin liquids per ST recs; encourage PO 2) Ensure Plus HP TIDWM; pending physician verification in EMR 3) Routine bowel care 4) Weekly scaled weights Addendum: 05/29/23 at [address] Amended: Links added.
[2023-05-29] MEDS: LACTOSE-REDUCED FOOD 237ML LIQUID PO SCH (18:00)
--- NOTE | 2023-05-29 18:21 | NUR ---
Patients heart rate following metoprolol under 100. Patient appears much more awake able to converse on the phone and talk with staff. seen by Dr mansfield. report given to Veronika VERDIN
--- NOTE | 2023-05-29 18:36 | NUR ---
Patient in room PCU 3009. I have received report from Elva VERDIN and had the opportunity to ask questions and assume patient care.
[2023-05-29] MEDS: insulin glargine (Lantus) pen - multi-dose SQ SCH (21:44)
[2023-05-30] MEDS: normal saline 1000ml 1,000 ML IV SCH (00:39)
[2023-05-30] MEDS: morphine 2 MG/ML inj. syringe IV PRN ×2 (01:21→15:02)
[2023-05-30 02:12] VITALS: BP 116/73; PULSE 85; RESP 25; TEMP 96.9; O2SAT 94
[2023-05-30 06:00] VITALS: BP 125/77; PULSE 79; RESP 21; TEMP 97.7; O2SAT 95
--- NOTE | 2023-05-30 06:40 | NUR ---
Problems reprioritized. Patient report given, questions answered & plan of care reviewed with Kacy ESCALANTE. Pt stable at shift change.
--- NOTE | 2023-05-30 06:50 | NUR ---
Patient in room PCU 3009. I have received report from Melissa and had the opportunity to ask questions and assume patient care.
[2023-05-30] MEDS: pantoprazole 40MG/NS 100ML BAG 100 ML IV SCH (07:45)
[2023-05-30] MEDS: meropenem inj 500 MG in normal saline 100ml IV soln 100 ML IV SCH (07:48)
[2023-05-30 08:00] VITALS: RESP 21; O2SAT 95
[2023-05-30] MEDS: K and/or MAG REPLACEMENT MC SCH (08:00)
[2023-05-30] MEDS: LACTOSE-REDUCED FOOD 237ML LIQUID PO SCH ×2 (08:00→13:04)
[2023-05-30] MEDS: nystatin 15 GM powder TP SCH (08:00)
[2023-05-30 08:55] LABS: BASOPHILS # (AUTO) 0.1 X10'3 (0-0.2); BASOPHILS % (AUTO) 0.6 % (0-1); EOSINOPHILS % (AUTO) 0.1 % (0-6); HEMATOCRIT 39.8 % (35.0-45.0); HEMOGLOBIN 12.5 g/dl (12.0-16.0); LYMPHOCYTES # (AUTO) 1.8 X10'3 (1.1-4.8); LYMPHOCYTES % (AUTO) 10.2 % (21-51); MEAN CORPUSCULAR HEMOGLOBIN 27.8 PG (27.0-31.0); MEAN CORPUSCULAR HGB CONC 31.4 g/dL (33.0-36.5); MEAN CORPUSCULAR VOLUME 88.4 FL (78-98); MEAN PLATELET VOLUME 8.1 FL (7.4-10.4); MONOCYTES # (AUTO) 0.8 X10'3 (0-0.9); MONOCYTES % (AUTO) 4.7 % (2-12); NEUTROPHILS # (AUTO) 14.9 X10'3 (1.8-7.7); NEUTROPHILS % (AUTO) 84.4 % (42-75); PLATELET COUNT 318 X10'3 (140-440); RED CELL DISTRIBUTION WIDTH 19.9 % (11.5-14.5); WHITE BLOOD COUNT 17.6 X10'3 (4.5-11.0)
[2023-05-30] MEDS: enoxaparin 30mg/0.3ml syringe SUBCUT SCH (09:04)
[2023-05-30 09:05] VITALS: BP_SYST 126; PULSE 85
[2023-05-30] MEDS: metoprolol tartrate 25mg tablet PO SCH (09:05)
[2023-05-30] MEDS: amiodarone 200mg tablet PO SCH (09:06)
[2023-05-30] MEDS ORDERED: CefTRIAXone 2gm/D5W 50ml BAG 50 ML IV SCH (09:10)
[2023-05-30 11:16] LABS: ALANINE AMINOTRANSFERASE 138 U/L (12-78); ALBUMIN 1.8 G/DL (3.4-5.0); ALBUMIN/GLOBULIN RATIO 0.4 (1.1-1.5); ALKALINE PHOSPHATASE 84 IU/L (46-116); ANION GAP 14 (8-16); ASPARTATE AMINO TRANSFERASE 221 U/L (10-37); BILIRUBIN,TOTAL 0.4 MG/DL (0.1-1.0); BLOOD UREA NITROGEN 66 MG/DL (7-18); BUN/CREATININE RATIO 35.1 (10.0-20.0); CALCIUM 9.1 MG/DL (8.5-10.1); CHLORIDE 104 MMOL/L (99-107); CREATININE 1.88 MG/DL (0.40-0.90); GLUCOSE 116 MG/DL (70-104); MAGNESIUM 1.8 MG/DL (1.5-2.4); SODIUM 137 MMOL/L (135-145); TOTAL CARBON DIOXIDE 19.2 MMOL/L (24-32); TOTAL PROTEIN 6.2 G/DL (6.4-8.2); eCRCL 18 ML/MIN; eGFR 26 ML/MIN
--- NOTE | 2023-05-30 11:38 | NUR ---
F/u 05/30: Pt continues on a carbohydrate controlled pureed nectar thick liquids diet with documented ~8% x 5 meals since last follow up. Pt has Ensure Plus High protein TIDWM on order should receive first one for breakfast today; pending ONS intake. Paged physician today regarding carbohydrate controlled restriction not warranted due to poor PO intake and A1c of 6.4%; discussed with RN. Per MOTOR VEHICLE FIELD REPRESENTATIVE today 05/30 recommends continuing pureed/ thin liquids; discussed MOTOR VEHICLE FIELD REPRESENTATIVE recs with RN. RN states pt has a milk allergy and is unsure if she can drink Ensure. Pt seen at bedside appears altered and slow to answer follow up questions regarding milk allergy. Pt states she eats ice cream sometimes but did not answer additional milk allergy questions therefore unclear if pt has milk allergy or a milk intolerance. RN to encourage Ensure intake due to being lactose free product, poor PO intake, and unable to start nutrition support yesterday due to pt pulling out corpak. LBM on 05/28 per EMR. Will continue to monitor and make recommendations as appropriate Recommendations: 1) Continue pureed diet with thin liquids per ST recs; encourage PO 2) Ensure Plus HP TIDWM 3) Routine bowel care 4) Weekly scaled weights Addendum: 05/30/23 at [address] Amended: Links added.
[2023-05-30] MEDS ORDERED: AMI200T PO (11:48)
[2023-05-30] MEDS ORDERED: APIX2.5T PO (11:48)
[2023-05-30 12:52] LABS: ANISOCYTOSIS 2+; PLATELET ESTIMATE NORMAL; SMUDGE CELLS 2+; TOTAL CELLS COUNTED 100
--- NOTE | 2023-05-30 14:15 | NUR ---
Called report to [facility] and spoke to Kaylen Gottlieb LVN. Gave all information and answered all questions.
--- NOTE | 2023-05-30 14:26 | NUR ---
AGREE WITH AIRCRAFT COMMUNICATOR AM ASSESSMENT
--- NOTE | 2023-05-30 15:50 | NUR ---
[facility] Telebox DCed and returned to [facility] and midline IV left in place for continued antibiotic therapy. Ken left in place per doctor order. She was stable at discharge and happy to go home. Patient took all belongings.
[2023-05-31] MEDS ORDERED: pantoprazole 40mg Tablet.DR PO SCH (07:30)
== END 2023-05-30 15:30 | DRG 871 ==
LOC: ER 01:08 → ED HOLD 10:35 → CICU 2S 13:13 → PCU 3S 05-28 16:45
PROVIDERS: ADMIT Internal Medicine Critical Care Medicine; ATTEND Internal Medicine Critical Care Medicine
PROC: 5A09357 Assistance with Respiratory Ventilation, Less than 24 Consecutive Hours, Continuous Positive Airway Pressure (ICD-10-PCS; 2023-05-24)
PROC: 02HV33Z Insertion of Infusion Device into Superior Vena Cava, Percutaneous Approach (ICD-10-PCS; principal; 2023-05-25)
PROC: 05HC33Z Insertion of Infusion Device into Left Basilic Vein, Percutaneous Approach (ICD-10-PCS; 2023-05-27)
DX: A41.51 Sepsis due to Escherichia coli [E. coli] (principal); G93.41 Metabolic encephalopathy; J18.9 Pneumonia, unspecified organism; J96.20 Acute and chronic respiratory failure, unspecified whether with hypoxia or hypercapnia; N17.0 Acute kidney failure with tubular necrosis; J69.0 Pneumonitis due to inhalation of food and vomit; R65.21 Severe sepsis with septic shock; R57.1 Hypovolemic shock; N39.0 Urinary tract infection, site not specified; Z16.24 Resistance to multiple antibiotics; I13.0 Hypertensive heart and chronic kidney disease with heart failure and stage 1 through stage 4 chronic kidney disease, or unspecified chronic kidney disease; I42.0 Dilated cardiomyopathy; E87.1 Hypo-osmolality and hyponatremia; E87.20 Acidosis, unspecified; Z68.41 Body mass index [BMI] 40.0-44.9, adult; J44.0 Chronic obstructive pulmonary disease with (acute) lower respiratory infection; Z16.12 Extended spectrum beta lactamase (ESBL) resistance; Z66 Do not resuscitate; A41.4 Sepsis due to anaerobes; G89.4 Chronic pain syndrome; E66.01 Morbid (severe) obesity due to excess calories; N18.30 Chronic kidney disease, stage 3 unspecified; Z20.822 Contact with and (suspected) exposure to COVID-19; G80.9 Cerebral palsy, unspecified; E78.5 Hyperlipidemia, unspecified; E03.9 Hypothyroidism, unspecified; E11.40 Type 2 diabetes mellitus with diabetic neuropathy, unspecified; G47.33 Obstructive sleep apnea (adult) (pediatric); E86.0 Dehydration; D64.9 Anemia, unspecified; I48.0 Paroxysmal atrial fibrillation; I50.9 Heart failure, unspecified; I25.10 Atherosclerotic heart disease of native coronary artery without angina pectoris; K21.9 Gastro-esophageal reflux disease without esophagitis; E11.22 Type 2 diabetes mellitus with diabetic chronic kidney disease; E11.51 Type 2 diabetes mellitus with diabetic peripheral angiopathy without gangrene; Z79.899 Other long term (current) drug therapy; Z87.440 Personal history of urinary (tract) infections; Z82.5 Family history of asthma and other chronic lower respiratory diseases; Z82.49 Family history of ischemic heart disease and other diseases of the circulatory system; Z99.81 Dependence on supplemental oxygen; Z91.199 Patient's noncompliance with other medical treatment and regimen due to unspecified reason
CPT/HCPCS: 36410; 36415; 36600; 71045; 74018; 76942; 80053; 80162; 81001; 82803; 82948; 83036; 83605; 83735; 83880; 84100; 84145; 84484; 85007; 85008; 85018; 85025; 87040; 87077; 87081; 87088; 87186; 87811; 92508; 92616; 93005; 93306; 94640; 94760; 96365; 96368; 97110; 97161; 97530; 99291; 99292; A4333; A4615; A4620; A4649; A5200; A6196; A6212; A6213; A6223; A6250; A6258; A6260; A6446; A6449; C1729; C1751; C1758; C9113; G0378; J0153; J0282; J0696; J1160; J1265; J1650; J1815; J2185; J2270; J2370; J2543; J3260; J3370; J3480; J3490; J7030; J7040; J7050; J7120